=== PATIENT | female | born 1985 | race Caucasian/White ===

== ENCOUNTER 2018-01-20 20:36 | Inpatient (IN) | payer OTHER ==
--- NOTE | 2018-01-20 22:17 | ED ---
Psych HPI - General Chief Complaint: Psychiatric Symptoms Stated Complaint: suicidal Time Seen by Provider: 01/20/18 21:15 Source: patient Mode of arrival: ambulatory - History of Present Illness Initial Comments: This patient is a 32-year-old woman who presents to be evaluated for anxiety, worsening mood, and suicidal ideation. The patient states that her insurance ran out within the past month. This led to her not being able to afford the Effexor that she takes, and she has run out of the medication for 2 weeks. Since that time she has noted that her mood is worsening and she is having issues with anxiety. The patient states that this led to her using methamphetamine to 3 days ago, and she is having significant anxiety related to this, as she had been clean for a little under a year. The patient states she does not have a suicidal plan, but she has had thoughts that maybe she would be better off . MD Complaint: suicidal ideation, other (Anxiety) Onset/Timin -: week(s) Associated Psychiatric Symptoms: depression, suicidal ideation, racing thoughts History of same: Yes Quality: changing over time Improves With: none Context: not taking psychiatric medications Associated Symptoms: denies other symptoms Treatments Prior to Arrival: none - Related Data Home Medications Medication Instructions Recorded Confirmed Venlafaxine HCl [Effexor XR] 225 mg PO DAILY 01/20/18 01/20/18 Zolpidem Tartrate [Ambien] 10 mg PO HS 01/20/18 01/20/18 busPIRone HCL 15 mg PO BID 01/20/18 01/20/18 Allergies Allergy/AdvReac Type Severity Reaction Status Date / Time Penicillins Allergy Anaphylaxis Verified 01/20/18 23:45 sulfamethoxazole Allergy Anaphylaxis Verified 01/20/18 23:45 [From Bactrim] trimethoprim [From Bactrim] Allergy Anaphylaxis Verified 01/20/18 23:45 Review of Systems ROS Statement: Those systems with pertinent positive or pertinent negative responses have been documented in the HPI. ROS Other: All systems not noted in ROS Statement are negative. Constitutional: Denies: fever, chills Respiratory: Denies: cough, dyspnea Cardiovascular: Denies: chest pain, palpitations, edema Gastrointestinal: Denies: abdominal pain, vomiting, diarrhea Genitourinary: Denies: dysuria, hematuria Musculoskeletal: Denies: back pain Skin: Denies: rash Neurological: Denies: headache Psychiatric: Reports: anxiety, depression, suicidal thoughts. Denies: auditory hallucinations, visual hallucinations, homicidal thoughts Past Medical History Past Medical History: No Reported History History of Any Multi-Drug Resistant Organisms: None Reported Past Surgical History: Section Past Psychological History: Anxiety, Depression Smoking Status: Never smoker Past Alcohol Use History: None Reported Past Drug Use History: Cocaine, Heroin General Exam Limitations: no limitations General appearance: alert, in no apparent distress, obese Head exam: Present: atraumatic, normocephalic Eye exam: Present: normal appearance. Absent: scleral icterus, conjunctival injection ENT exam: Present: normal oropharynx Respiratory exam: Present: normal lung sounds bilaterally. Absent: respiratory distress, wheezes, rales, rhonchi, stridor Cardiovascular Exam: Present: regular rate, normal rhythm, normal heart sounds. Absent: systolic murmur, diastolic murmur, rubs, gallop GI/Abdominal exam: Present: soft. Absent: distended, tenderness, guarding, rebound Extremities exam: Present: normal inspection. Absent: pedal edema, calf tenderness Back exam: Present: normal inspection. Absent: CVA tenderness (R), CVA tenderness (L) Neurological exam: Present: alert Psychiatric exam: Present: anxious, suicidal ideation, other (Tearful affect). Absent: agitated, flat affect, manic, homicidal ideation Skin exam: Present: warm, dry, intact, normal color. Absent: rash Course Vital Signs 01/20/18 01/20/18 21:01 23:46 Temperature 98.3 F 97.8 F Pulse Rate 101 H 82 Respiratory 20 18 Rate Blood Pressure 139/80 121/66 O2 Sat by Pulse 99 98 Oximetry Medical Decision Making - Lab Data Result diagrams: 01/21/18 08:11 01/21/18 08:11 Disposition Clinical Impression: Mood disorder Disposition: ADMITTED IP TO THIS [facility] Condition: Fair Is patient prescribed a controlled substance at d/c from ED?: No
[2018-01-20] MEDS ORDERED: MAG HYDROX/AL HYDROX/SIMETH 30 ML CUP PO PRN (23:41)
[2018-01-20] MEDS ORDERED: ZIPRASIDONE 20 MG VIAL IM PRN (23:41)
[2018-01-20] MEDS ORDERED: MAGNESIUM HYDROXIDE 2,400 MG/10 ML CUP PO PRN (23:41)
[2018-01-20] MEDS ORDERED: LORazepam 1 MG TAB PO PRN (23:41)
[2018-01-20] MEDS ORDERED: LORazepam 2 MG/ML INJ IM PRN (23:43)
[2018-01-21 00:27] VITALS: BMI 42.2
--- NOTE | 2018-01-21 01:10 | P.MDCNMH ---
History of Present Illness H&P Date: 01/21/18 Chief Complaint: Depression 32 yo female h/o depression, c/o worsening depressed mood, anhedonia, sleep problems, feeling of worthlessness. Also suicidal ideation. Reports trying to inject methamphetamine, left cubital area. Otherwise denies any fever, chils, SOB, abd pain, chest pain. She reports voluntary admission. Denies hallucinations. Review of Systems All systems: negative Constitutional: Reports fatigue, Denies anorexia, Denies chills, Denies chronic pain, Denies daytime sleepiness Ears, nose, mouth and throat: Denies voice changes Cardiovascular: Denies chest pain, Denies dyspnea on exertion, Denies lightheadedness, Denies rapid heart beat, Denies shortness of breath Respiratory: Denies cough, Denies wheezing Gastrointestinal: Denies abdominal pain Musculoskeletal: Denies gait dysfunction, Denies hot joints, Denies morning stiffness, Denies muscle cramps, Denies myalgias, Denies redness of joints, Denies shooting arm pain Past Medical History Past Medical History: No Reported History History of Any Multi-Drug Resistant Organisms: None Reported Past Surgical History: Section Additional Past Surgical History / Comment(s): 2 C sections Past Anesthesia/Blood Transfusion Reactions: No Reported Reaction Past Psychological History: Anxiety, Depression Smoking Status: Current every day smoker Past Alcohol Use History: None Reported Past Drug Use History: Cocaine, Heroin, Marijuana, Methamphetamine Medications and Allergies Home Medications Medication Instructions Recorded Confirmed Type Venlafaxine HCl [Effexor XR] 225 mg PO DAILY 01/20/18 01/20/18 History Zolpidem Tartrate [Ambien] 10 mg PO HS 01/20/18 01/20/18 History busPIRone HCL 15 mg PO BID 01/20/18 01/20/18 History Allergies Allergy/AdvReac Type Severity Reaction Status Date / Time Penicillins Allergy Anaphylaxis Verified 01/20/18 23:45 sulfamethoxazole Allergy Anaphylaxis Verified 01/20/18 23:45 [From Bactrim] trimethoprim [From Bactrim] Allergy Anaphylaxis Verified 01/20/18 23:45 Physical Exam Vitals: Vital Signs Temp Pulse Pulse Resp BP BP Pulse Ox 01/21/18 00:19 98.0 F 79 17 128/81 100 01/20/18 23:46 97.8 F 82 18 121/66 98 01/20/18 21:01 98.3 F 101 H 20 139/80 99 Intake and Output 01/20/18 01/20/18 01/21/18 14:59 22:59 06:59 Other: Weight 99.79 kg 108.097 kg - Constitutional General appearance: cooperative, no acute distress, obese - EENT Eyes: anicteric sclerae, EOMI - Neck Neck: no lymphadenopathy, normal ROM - Respiratory Respiratory: bilateral: CTA - Cardiovascular Rhythm: regular Heart sounds: normal: S1, S2 - Gastrointestinal General gastrointestinal: normal bowel sounds, no tenderness - Integumentary Integumentary: no rash, no ulcer - Musculoskeletal Musculoskeletal: gait normal - Psychiatric Psychiatric: A&O x's 3 (left cubital fossa, needle mercedes, minimal redness, no pain swelling or streaking; small bruise above ) Cranial Nerve Examination - Cranial Nerves Cranial Nerve II- Optic: Intact Cranial Nerve III- Oculomotor: Intact Cranial Nerve IV- Trochlear: Intact Cranial Nerve V- Trigeminal: Intact Cranial Nerve - Abducens: Intact Cranial Nerve VII- Facial: Intact Cranial Nerve VIII- Auditory: Intact Cranial Nerve IX- Glossopharyngeal: Intact Cranial Nerve X- Vagus: Intact Cranial Nerve XI- Accessory: Intact Cranial Nerve XII- Hypoglossal: Intact Assessment and Plan (1) Mood disorder Narrative/Plan: admitted for worsening depression and suicidal ideation tretment per psychiatry social support check lipid panel, A1c, TSH, test Current Visit: Yes Status: Acute Priority: High Code(s): F39 - UNSPECIFIED MOOD [AFFECTIVE] DISORDER SNOMED Code(s): 75979432 Time with Patient: Less than 30
[2018-01-21 01:18] LABS: Amphetamine Screen,Urine Detected (NotDetected); Barbiturate Screen,Urine Not Detected (NotDetected); Benzodiazepines Screen,Urine Detected (NotDetected); Cocaine Screen,Urine Not Detected (NotDetected); Methadone Screen, Urine Not Detected (NotDetected); Opiate Screen,Urine Not Detected (NotDetected); Oxycodone Screen, Urine Not Detected (NotDetected); Phencyclidine Screen,Urine Not Detected (NotDetected); Tricyclic Antidepressant,Urine Detected (NotDetected); Urn Cannabinoid Scrn Detected (NotDetected)
[2018-01-21 01:32] LABS: Appearance,Urine Clear (Clear); Bilirubin,Urine Negative (Negative); Blood,Urine Moderate (Negative); Color,Urine Yellow; Glucose,Urine (UA) Negative (Negative); Ketones,Urine Negative (Negative); Leukocyte Esterase,Urine Moderate (Negative); Mucus,Urine Occasional /hpf; Nitrite,Urine Negative (Negative); Protein,Urine 1+ (Negative); RBC,Urine 16 /hpf (0-5); Squamous Epithelial Cell,Urine 2 /hpf (0-4); WBC,Urine 2 /hpf (0-5)
[2018-01-21] MEDS: ACETAMINOPHEN TAB 325 MG TAB PO PRN ×2 (08:53→18:09)
[2018-01-21] MEDS: NICOTINE 14MG/24HR PATCH TRANSDERM SCH (08:58)
[2018-01-21 09:22] LABS: ALT 26 U/L (9-52); AST 17 U/L (14-36); Albumin 3.9 g/dL (3.5-5.0); Alkaline Phosphatase 113 U/L (38-126); Anion Gap 12 mmol/L; Blood Urea Nitrogen 16 mg/dL (7-17); Calcium 8.7 mg/dL (8.4-10.2); Carbon Dioxide 20 mmol/L (22-30); Chloride 109 mmol/L (98-107); Cholesterol 233 mg/dL (<200); Glucose 94 mg/dL (74-99); HDL Cholesterol 54 mg/dL (40-60); LDL Cholesterol,Calculated 127 mg/dL (0-99); Sodium 141 mmol/L (137-145); Total Bilirubin 0.2 mg/dL (0.2-1.3); Total Protein 6.5 g/dL (6.3-8.2); Triglycerides 261 mg/dL (<150)
[2018-01-21 09:27] LABS: Basophils # (A) 0.1 k/uL (0-0.2); Basophils % (A) 0 %; Eosinophils # (A) 0.4 k/uL (0-0.7); Eosinophils % (A) 3 %; HCT 36.4 % (34.0-46.0); HGB 11.9 gm/dL (11.4-16.0); Lymphocytes # (A) 3.1 k/uL (1.0-4.8); Lymphocytes % (A) 29 %; MCH 28.2 pg (25.0-35.0); MCHC 32.7 g/dL (31.0-37.0); MCV 86.2 fL (80.0-100.0); Mean Platelet Volume 7.7; Monocytes # (A) 0.6 k/uL (0-1.0); Monocytes % (A) 6 %; Neutrophils # (A) 6.4 k/uL (1.3-7.7); Neutrophils % (A) 60 %; Platelet Count 373 k/uL (150-450); RBC 4.22 m/uL (3.80-5.40); RDW 13.7 % (11.5-15.5); WBC 10.8 k/uL (3.8-10.6)
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
[2018-01-21] MEDS: OXcarbazepine 300 MG TAB PO SCH ×2 (10:09→20:38)
[2018-01-21 17:14] LABS: Hemoglobin A1C 5.5 % (4.0-6.0)
[2018-01-21] MEDS: hydrOXYzine PAMOATE 25 MG CAP PO PRN (18:09)
[2018-01-21] MEDS ORDERED: QUEtiapine 50 MG TAB PO SCH (21:00)
[2018-01-22] MEDS: hydrOXYzine PAMOATE 25 MG CAP PO PRN ×3 (08:10→21:21)
[2018-01-22] MEDS: NICOTINE 14MG/24HR PATCH TRANSDERM SCH (08:10)
[2018-01-22] MEDS: OXcarbazepine 300 MG TAB PO SCH ×2 (08:10→21:21)
--- NOTE | 2018-01-22 08:59 | P.PN ---
Progress Note - Text Progress Note Date: 01/22/18 Patient was seen for routine follow-up examination. She said she did not sleep very well last night, had to take some Vistaril on a when necessary basis for anxiety yesterday etc. She also said she has not been thinking about suicide or hurting herself. Denies any adverse effects from her medications. This is an obese ambulatory white female with adequate hygiene. She has combed her hair and and they are not covering her face today like they did yesterday. She continues not to show psychomotor agitation or retardation. Her speech is spontaneous and goal-directed. Mood is mildly anxious and affect is appropriate. She denies hallucinations, delusional thinking, suicide and homicide thoughts. She is well oriented with adequate memory concentration etc. Plan: Increase Seroquel 200 mg at bedtime, continue Trileptal, groups and other activities. Patient was advised to discuss with her covering psychiatrist tomorrow if the dose of Seroquel needs to be adjusted tomorrow.
[2018-01-22] MEDS: QUEtiapine 100 MG TAB PO SCH (21:21)
[2018-01-22] MEDS: ACETAMINOPHEN TAB 325 MG TAB PO PRN (21:21)
[2018-01-23] MEDS: OXcarbazepine 300 MG TAB PO SCH ×2 (08:39→20:27)
[2018-01-23] MEDS: NICOTINE 14MG/24HR PATCH TRANSDERM SCH (08:39)
[2018-01-23] MEDS: hydrOXYzine PAMOATE 25 MG CAP PO PRN ×3 (08:40→20:28)
[2018-01-23] MEDS: ACETAMINOPHEN TAB 325 MG TAB PO PRN ×2 (08:40→12:15)
--- NOTE | 2018-01-23 14:49 | P.PN ---
Progress Note - Text Progress Note Date: 01/23/18 Interval history: Patient [place] [facility] [place] Dr. Zaidi. She reports that her mood overall is doing better than when she came into the hospital. She wonders again about being placed on an antidepressant because her mood still could be better. She describes that she is no longer having any thoughts of suicide. She does not seem to voice any adverse psychotropic medication side effects. She does describe that her sleep and appetite seemed to be fluctuating. Mental status exam: She is alert and cooperative with the interview. Her speech is fluent, not rapid or pressured. Thought processes organized. Her mood is described as better than when she came into the hospital but still could be better. She denies any thoughts of harm to self or others. She does not display any symptoms of psychosis. Plan: We'll maintain current psychotropic medications. We'll monitor for any medication side effects and continue to monitor her mood. We'll continue to monitor also for any suicidal ideations. Continue to cover this patient for Dr. Zaidi through the weekend.
[2018-01-23] MEDS: QUEtiapine 100 MG TAB PO SCH (20:27)
[2018-01-24] MEDS: OXcarbazepine 300 MG TAB PO SCH ×2 (08:35→20:17)
[2018-01-24] MEDS: hydrOXYzine PAMOATE 25 MG CAP PO PRN ×3 (08:35→20:44)
[2018-01-24] MEDS: NICOTINE 14MG/24HR PATCH TRANSDERM SCH (08:35)
--- NOTE | 2018-01-24 16:53 | P.PN ---
Progress Note - Text Progress Note Date: 01/24/18 Interval history: Patient seen in [facility] today. She reports she slept about 6 hours last night. She relays that she is eating some of her meals. She does not seem to voice any adverse psychotropic medication side effects. She also does describe anxiety. She feels like her mood is a little bit down today. Mental status exam: She is alert and cooperative with the interview. Her speech is fluent, not rapid or pressured. Her thought processes are organized. Her mood is described as "a little down." She denies any thoughts of harm to self or others. No active evidence of psychosis symptoms. Plan: We'll titrate Seroquel 150 mg at bedtime to see if this can help further with aspects of mood as well as severe anxiety and still reported some difficulties with sleep. Continue to monitor her mood and monitor for any medication side effects.
[2018-01-24] MEDS ORDERED: QUEtiapine 50 MG TAB PO SCH (21:00)
[2018-01-24] MEDS: ACETAMINOPHEN TAB 325 MG TAB PO PRN (21:36)
[2018-01-25 06:50] VITALS: PULSE 81
[2018-01-25] MEDS: NICOTINE 14MG/24HR PATCH TRANSDERM SCH (08:09)
[2018-01-25] MEDS: hydrOXYzine PAMOATE 25 MG CAP PO PRN ×3 (08:09→20:16)
[2018-01-25] MEDS: OXcarbazepine 300 MG TAB PO SCH ×2 (08:09→20:16)
--- NOTE | 2018-01-25 10:36 | P.PN ---
Progress Note - Text Progress Note Date: 01/25/18 Patient was seen for routine follow-up examination. She said she feels better today but she still did not sleep well last night. She denies any adverse effects from her medications. Her Seroquel was increased 250 mg at bedtime yesterday by the weekend psychiatrist. She has been attending groups, socializes with peers and interacts with staff etc. This is an obese ambulatory white female with good hygiene. She does not show any psychomotor agitation or retardation. Her speech is spontaneous relevant and goal-directed. Her mood is euthymic and affect is appropriate. She denies suicidal and homicidal thoughts. She denies hallucinations and delusional thinking. She is well oriented with good memory concentration etc. Plan: Increase Seroquel to 200 mg at bedtime, continue Trileptal, groups and other therapies.
[2018-01-25] MEDS: ACETAMINOPHEN TAB 325 MG TAB PO PRN (17:17)
[2018-01-25] MEDS ORDERED: QUEtiapine 200 MG TAB PO SCH (21:00)
[2018-01-26 06:43] VITALS: BP 125/71; RESP 20; TEMP 97.7
[2018-01-26] MEDS: OXcarbazepine 300 MG TAB PO SCH (08:27)
[2018-01-26] MEDS: NICOTINE 14MG/24HR PATCH TRANSDERM SCH (08:27)
[2018-01-26] MEDS: hydrOXYzine PAMOATE 25 MG CAP PO PRN (08:28)
--- NOTE | 2018-01-26 10:05 | P.DS ---
Providers Date of admission: 01/20/18 23:35 Expected date of discharge: 01/26/18 Attending physician: Freddie Zaidi Consults: 01/20/18 23:41 Consult Physician Routine Consulting Provider: Ellen Gonzalez Consult Reason/Comments: For A & P for Medical Follow Up. Do you want consulting provider notified?: Yes Primary care physician: Stated None Hospital Course: Patient had her physical examination, psychiatric evaluation and psychosocial evaluation. After psychiatric evaluation she was counseled about her condition and it was agreed to start her on Trileptal and Seroquel for more stabilization. Her Seroquel was gradually increased to 200 mg at bedtime without any adverse effects and it helped her to sleep well also. She did not have any adverse effects from her medications. Her other home medications were discontinued. She started to improve, interacted with staff, socialized with peers and attended groups. She became free of suicide and homicide thoughts, mood became more stable and she became cheerful. She also agreed to return to work, continue with outpatient treatment etc. In view of this it was agreed to discharge her. Condition on discharge: This is an obese ambulatory white female with adequate hygiene. She is polite friendly and cooperative. Her mood is cheerful and affect is appropriate. She does not show any psychomotor agitation or retardation. She continues to deny suicide and homicide thoughts. She also denies hallucinations and delusional thinking. Her insight and judgment have improved. She is well oriented with good memory concentration general fund of knowledge etc. Diagnosis on discharge: Unspecified bipolar and related disorder F 31.9. Cannabis use disorder severe F 12.20. 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 History of opioid use disorder severe F 12.20. Borderline personality disorder F 60.3. ALLERGY to penicillin and Bactrim. Patient was advised and agreed to take her medications as prescribed, to learn better coping skills through therapy, not to drink alcohol or use drugs, not to drive or operate missionary if she feels sleepy, to inform her doctor if she gets , to call her psychiatrist or therapist and if she cannot get hold of them go to the nearest ER if she develops any thoughts of hurting herself or others. Patient Condition at Discharge: Stable Plan - Discharge Summary New Discharge Prescriptions: New OXcarbazepine [Trileptal] 300 mg PO BID 30 Days #60 tab QUEtiapine [SEROquel] 200 mg PO HS 30 Days #30 tab Discontinued busPIRone HCL 15 mg PO BID Zolpidem Tartrate [Ambien] 10 mg PO HS Venlafaxine HCl [Effexor XR] 225 mg PO DAILY Discharge Medication List OXcarbazepine [Trileptal] 300 mg PO BID 30 Days #60 tab 01/26/18 [Rx] QUEtiapine [SEROquel] 200 mg PO HS 30 Days #30 tab 01/26/18 [Rx] Follow up Appointment(s)/Referral(s): [facility] [Outside] - 1-2 Days (walk in intake today until 5pm Thursday 830 - 3pm 830 - 3pm) None,Stated [Primary Care Provider] - 1-2 days
== END 2018-01-26 11:11 | disposition home or self-care (01) | DRG 885 ==
LOC: EC 20:36 → 3MHU 23:35
PROVIDERS: ADMIT Psychiatry & Neurology Psychiatry; ATTEND Psychiatry & Neurology Psychiatry
DX: F31.9 Bipolar disorder, unspecified (principal); R45.851 Suicidal ideations; Z68.41 Body mass index [BMI] 40.0-44.9, adult; F60.3 Borderline personality disorder; F41.9 Anxiety disorder, unspecified; F17.200 Nicotine dependence, unspecified, uncomplicated; Z62.810 Personal history of physical and sexual abuse in childhood; E66.9 Obesity, unspecified; Z88.1 Allergy status to other antibiotic agents; Z88.0 Allergy status to penicillin; Z81.8 Family history of other mental and behavioral disorders
CPT/HCPCS: 80053; 80061; 80306; 81001; 82075; 83036; 84443; 85025; 99285

== ENCOUNTER 2019-06-16 10:45 | Emergency (ER) | payer OTHER ==
[2019-06-16 11:01] VITALS: RESP 17; TEMP 97.9
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
[2019-06-16 11:53] LABS: Amorphous Sediment,Urine Rare /hpf; Appearance,Urine Cloudy (Clear); Bacteria,Urine Moderate /hpf; Bilirubin,Urine Negative (Negative); Blood,Urine Negative (Negative); Color,Urine Yellow; Glucose,Urine (UA) Negative (Negative); Ketones,Urine Negative (Negative); Leukocyte Esterase,Urine Small (Negative); Mucus,Urine Rare /hpf; Nitrite,Urine Negative (Negative); Protein,Urine Trace (Negative); Specific Gravity,Urine 1.016 (1.001-1.035); Squamous Epithelial Cell,Urine 7 /hpf (0-4); Urobilinogen,Urine <2.0 mg/dL (<2.0)
[2019-06-16 12:01] LABS: Amphetamine Screen,Urine Detected (NotDetected); Barbiturate Screen,Urine Not Detected (NotDetected); Benzodiazepines Screen,Urine Detected (NotDetected); Cocaine Screen,Urine Not Detected (NotDetected); Methadone Screen, Urine Not Detected (NotDetected); Opiate Screen,Urine Not Detected (NotDetected); Oxycodone Screen, Urine Not Detected (NotDetected); Phencyclidine Screen,Urine Not Detected (NotDetected); Tricyclic Antidepressant,Urine Detected (NotDetected); Urn Cannabinoid Scrn Detected (NotDetected)
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
--- NOTE | 2019-06-16 12:13 | XR ---
EXAMINATION TYPE: XR humerus LT DATE OF EXAM: 06/16/2019 CLINICAL HISTORY: pain TECHNIQUE: Frontal and lateral images of the left humerus are obtained. COMPARISON: None. FINDINGS: There is no acute fracture/dislocation evident. The joint spaces appear within normal limi ts. The overlying soft tissue appears unremarkable. IMPRESSION: There is no acute fracture or dislocation. ICD 10 NO FRACTURE, INITIAL EVALUATION
[2019-06-16 15:39] VITALS: BP 150/105; PULSE 81
== END 2019-06-16 15:39 | disposition home or self-care (01) ==
LOC: EC 10:45
DX: F99 Mental disorder, not otherwise specified (principal); R45.851 Suicidal ideations; S40.022A Contusion of left upper arm, initial encounter; F31.9 Bipolar disorder, unspecified; F41.9 Anxiety disorder, unspecified; Z79.899 Other long term (current) drug therapy; Z88.0 Allergy status to penicillin; Z88.2 Allergy status to sulfonamides; X83.8XXA Intentional self-harm by other specified means, initial encounter; Y04.0XXA Assault by unarmed brawl or fight, initial encounter
CPT/HCPCS: 70450; 72125; 80306; 81001; 81025; 82075; 99285

== ENCOUNTER 2021-10-14 22:49 | Emergency (ER) | payer OTHER ==
[2021-10-14 23:26] VITALS: BP 139/88; PULSE 68; RESP 20; TEMP 97
--- NOTE | 2021-10-15 01:01 | ED ---
URI HPI - General Chief Complaint: Upper Respiratory Infection Stated Complaint: cough, muscle pain Time Seen by Provider: 10/15/21 00:50 Source: patient, RN notes reviewed Mode of arrival: ambulatory Limitations: no limitations - History of Present Illness Initial Comments: Patient presents to the emergency stating she's had a few days of cough, runny nose, body aches, intermittent abdominal discomfort and generalized fatigue. Patient requesting COVID-19 test. no changes in vision or hearing, no sore throat or difficulty with speech, no neck pain, no chest pain or shortness of breath, no nausea or vomiting, no changes in urination or bowel movements, no numbness or tingling, no extremity pain, no skin rashes or lesions. - Related Data Home Medications Medication Instructions Recorded Confirmed Naltrexone HCl [Revia] 50 mg PO DAILY 06/16/19 06/16/19 QUEtiapine [SEROquel] 400 mg PO HS 06/16/19 06/16/19 Venlafaxine HCl [Effexor XR] 300 mg PO DAILY 06/16/19 06/16/19 Previous Rx's Medication Instructions Recorded OXcarbazepine [Trileptal] 300 mg PO BID 30 Days #60 tab 01/26/18 Allergies Allergy/AdvReac Type Severity Reaction Status Date / Time Penicillins Allergy Anaphylaxis Verified 10/14/21 23:23 sulfamethoxazole Allergy Anaphylaxis Verified 10/14/21 23:23 [From Bactrim] trimethoprim [From Bactrim] Allergy Anaphylaxis Verified 10/14/21 23:23 Review of Systems ROS Statement: Those systems with pertinent positive or pertinent negative responses have been documented in the HPI. ROS Other: All systems not noted in ROS Statement are negative. Past Medical History Past Medical History: No Reported History History of Any Multi-Drug Resistant Organisms: None Reported Past Surgical History: Section Additional Past Surgical History / Comment(s): 2 C sections Past Anesthesia/Blood Transfusion Reactions: No Reported Reaction Past Psychological History: Anxiety, Depression Smoking Status: Current every day smoker Past Alcohol Use History: Occasional Past Drug Use History: Cocaine, Heroin, Marijuana General Exam Limitations: no limitations General appearance: alert, in no apparent distress Head exam: Present: atraumatic, normocephalic, normal inspection Eye exam: Present: normal appearance, PERRL, EOMI. Absent: scleral icterus, conjunctival injection, periorbital swelling ENT exam: Present: normal exam, mucous membranes moist Neck exam: Present: normal inspection. Absent: tenderness, meningismus, lymphadenopathy Respiratory exam: Present: normal lung sounds bilaterally. Absent: respiratory distress, wheezes, rales, rhonchi, stridor Cardiovascular Exam: Present: regular rate, normal rhythm, normal heart sounds. Absent: systolic murmur, diastolic murmur, rubs, gallop, clicks GI/Abdominal exam: Present: soft, normal bowel sounds. Absent: distended, tenderness, guarding, rebound, rigid Extremities exam: Present: normal inspection, full ROM, normal capillary refill. Absent: tenderness, pedal edema, joint swelling, calf tenderness Back exam: Present: normal inspection Neurological exam: Present: alert, oriented X3, CN II-XII intact Psychiatric exam: Present: normal affect, normal mood Skin exam: Present: warm, dry, intact, normal color. Absent: rash Course Vital Signs 10/14/21 23:23 Temperature 97.0 F L Pulse Rate 68 Respiratory 20 Rate Blood Pressure 139/88 O2 Sat by Pulse 100 Oximetry Medical Decision Making - Medical Decision Making Patient comes up positive for COVID-19. Patient did meet criteria for monoclonal antibody infusion. I discussed this treatment modality with the patient. She is deferring this treatment at this time. Patient no acute distress. Work note given. He shows no evidence of secondary infection. Discussed quarantine measures and treatment plan with the patient. Patient voices understanding. Patient discharged in no acute distress. Nontoxic appearing. - Lab Data Lab Results 10/14/21 Range/Units 23:27 Coronavirus (PCR) Detected A (Not Detectd) Disposition Clinical Impression: COVID-19, Asthmatic bronchitis Disposition: HOME SELF-CARE Condition: Good Instructions (If sedation given, give patient instructions): Coronavirus Disease 2019 (COVID-19) Additional Instructions: SELF QUARANTINE DISCHARGE: As you are at risk for symptoms due to coronavirus, please stay home and stay away from others as much as possible. Please maintain social distance of 6 feet if possible. You should not return to work until at least 3 days (72 hours) have passed since recovery of symptoms. This defined as resolution of fever without the use of fever reducing medicines and improvement in respiratory symptoms (e.g,, cough, shortness of breath) and, At least 7 days have passed since symptoms first appeared. More information about what to do if you are sick can be found on the CDC website at https:/ /www.cdc.gov/coronavirus/2019-ncov/rt-ieh-vew-sick/lalkf-mqpk-jcct.html Expect the symptoms to last for 7-14 days from onset. Use acetaminophen (Tylenol) as needed for discomfort. You can take a maximum of 1 gram every 6 hours for discomfort, with your total dose in 24 hours not exceeding 4 grams. Be sure to maintain hydration. Drink continuous water and/or items high in vitamin C, such as orange juice and/or lemonade. Unless you have high blood pressure, you may consider Sudafed (which is [id number]) for nasal congestion. I would suggest that a short acting Sudafed rather than the 24 hour Sudafed. For a cough you may take Mucinex or Robitussin. Also consider the use of Vicks Vapor Rub or your chest when you sleep. Use a humidifier that is cleaned frequently, in the bedroom at night. For Nausea /Vomiting/Diarrhea associated with your Illness: o Small frequent sips of room temperature liquids. o Diet: [employer] - If you are still experiencing discomfort and/or nausea please slowly advancing your diet using the BRAT Diet = bananas, rice, apples/apple sauce, toast. o With diarrhea avoid any dairy for 48 hours after symptoms resolved. o Continue with activity as tolerated. If your symptoms do get worse and you believe that the upper respiratory infection has developed into something else, such as pneumonia or severe dehydration, please return to the emergency department or follow-up with your primary care. But expect to be symptomatic for the days as indicated above Is patient prescribed a controlled substance at d/c from ED?: No Referrals: Nilson Delatorre MD [Primary Care Provider] - 10/22/21 Time of Disposition: 01:01
== END 2021-10-15 02:08 | disposition home or self-care (01) ==
LOC: EC 22:49
DX: U07.1 COVID-19 (principal); J45.909 Unspecified asthma, uncomplicated; F41.9 Anxiety disorder, unspecified; F32.A Depression, unspecified; F17.200 Nicotine dependence, unspecified, uncomplicated; F12.90 Cannabis use, unspecified, uncomplicated; Z88.0 Allergy status to penicillin; Z88.1 Allergy status to other antibiotic agents; Z88.2 Allergy status to sulfonamides
CPT/HCPCS: 87635; 99284

== ENCOUNTER 2021-12-01 12:01 | Inpatient (IN) | payer MEDICAID, OTHER ==
--- NOTE | 2021-12-01 12:21 | ED ---
General Adult HPI - General Chief complaint: Psychiatric Symptoms Stated complaint: Overdose Time Seen by Provider: 12/01/21 12:06 Source: patient, EMS, RN notes reviewed Mode of arrival: EMS Limitations: altered mental status - History of Present Illness Initial comments: Patient is a pleasant 36-year-old female presenting to the emergency department following an overdose. Patient states around 10:30 this morning she took 30 of her Effexor as well as 8 Suboxone. Patient had an episode yesterday making her depressed and did overdose in attempt to harm herself. Patient denies alcohol or street drug use. No physical complaints. - Related Data Home Medications Medication Instructions Recorded Confirmed Venlafaxine HCl [Effexor XR] 150 mg PO DAILY 06/16/19 12/01/21 Buprenorphine HCl/Naloxone HCl 1 tab SUBLINGUAL TID 12/01/21 12/01/21 [Zubsolv 5.7-1.4 mg Tablet Sl] Cyclobenzaprine [Flexeril] 10 mg PO TID PRN 12/01/21 12/01/21 Ibuprofen [Motrin] 800 mg PO Q8H PRN 12/01/21 12/01/21 Allergies Allergy/AdvReac Type Severity Reaction Status Date / Time Penicillins Allergy Anaphylaxis Verified 12/01/21 14:36 sulfamethoxazole Allergy Anaphylaxis Verified 12/01/21 14:36 [From Bactrim] trimethoprim [From Bactrim] Allergy Anaphylaxis Verified 12/01/21 14:36 Review of Systems ROS Statement: Those systems with pertinent positive or pertinent negative responses have been documented in the HPI. ROS Other: All systems not noted in ROS Statement are negative. Constitutional: Denies: fever Eyes: Denies: eye pain ENT: Denies: ear pain Respiratory: Denies: cough Cardiovascular: Denies: chest pain Endocrine: Denies: fatigue Gastrointestinal: Denies: abdominal pain Genitourinary: Denies: dysuria Musculoskeletal: Denies: back pain Skin: Denies: rash Neurological: Denies: weakness Psychiatric: Reports: as per HPI, depression, suicidal thoughts Past Medical History Past Medical History: No Reported History History of Any Multi-Drug Resistant Organisms: None Reported Past Surgical History: Section Additional Past Surgical History / Comment(s): 2 C sections Past Anesthesia/Blood Transfusion Reactions: No Reported Reaction Past Psychological History: Anxiety, Depression Smoking Status: Current every day smoker Past Alcohol Use History: Occasional Past Drug Use History: Cocaine, Heroin, Marijuana General Exam Limitations: altered mental status General appearance: alert, in no apparent distress Head exam: Present: normocephalic Eye exam: Present: normal appearance Neck exam: Present: normal inspection Respiratory exam: Present: normal lung sounds bilaterally Cardiovascular Exam: Present: regular rate, normal rhythm GI/Abdominal exam: Present: soft. Absent: tenderness Extremities exam: Present: normal inspection Neurological exam: Present: alert Psychiatric exam: Present: depressed Skin exam: Present: normal color Course Vital Signs 12/01/21 12/01/21 12:07 13:34 Temperature 97.4 F L 97.6 F Pulse Rate 106 H 96 Respiratory 16 14 Rate Blood Pressure 165/97 115/81 O2 Sat by Pulse 99 98 Oximetry EKG Findings - EKG Comments: EKG Findings:: Sinus rhythm rate 82. [place] 133. QRS 94. QT 380. QTC 419. Normal axis. Normal QRS. No acute ST change. Medical Decision Making - Medical Decision Making Patient was seen by mental health services plans for admission. - Lab Data Result diagrams: 12/01/21 12:33 12/01/21 12:33 Lab Results 12/01/21 12/01/21 12/01/21 Range/Units 12:33 12:33 13:15 WBC 10.5 (3.8-10.6) k/uL RBC 4.25 (3.80-5.40) m/uL Hgb 13.7 (11.4-16.0) gm/dL Hct 40.7 (34.0-46.0) % MCV 95.7 (80.0-100.0) fL MCH 32.3 (25.0-35.0) pg MCHC 33.7 (31.0-37.0) g/dL RDW 13.1 (11.5-15.5) % Plt Count 353 (150-450) k/uL MPV 7.3 Neutrophils % 69 % Lymphocytes % 20 % Monocytes % 6 % Eosinophils % 3 % Basophils % 1 % Neutrophils # 7.3 (1.3-7.7) k/uL Lymphocytes # 2.1 (1.0-4.8) k/uL Monocytes # 0.7 (0-1.0) k/uL Eosinophils # 0.3 (0-0.7) k/uL Basophils # 0.1 (0-0.2) k/uL Sodium 133 L (137-145) mmol/L Potassium 5.3 H (3.5-5.1) mmol/L Chloride 107 (98-107) mmol/L Carbon Dioxide 20 L (22-30) mmol/L Anion Gap 6 mmol/L BUN 16 (7-17) mg/dL Creatinine 0.51 L (0.52-1.04) mg/dL Est GFR (CKD-EPI)AfAm >90 (>60 ml/min/1.73 sqM) Est GFR (CKD-EPI)NonAf >90 (>60 ml/min/1.73 sqM) Glucose 118 H (74-99) mg/dL Calcium 8.8 (8.4-10.2) mg/dL Total Bilirubin 1.0 (0.2-1.3) mg/dL AST 41 H (14-36) U/L ALT 38 H (4-34) U/L Alkaline Phosphatase 97 (38-126) U/L Total Protein 8.1 (6.3-8.2) g/dL Albumin 4.4 (3.5-5.0) g/dL Urine HCG, Qual Not Detected (Not Detectd) Salicylates <1.0 mg/dL Urine Opiates Screen (NotDetected) Ur Oxycodone Screen (NotDetected) Urine Methadone Screen (NotDetected) Ur Propoxyphene Screen (NotDetected) Acetaminophen <10.0 ug/mL Ur Barbiturates Screen (NotDetected) U Tricyclic Antidepress (NotDetected) Ur Phencyclidine Scrn (NotDetected) Ur Amphetamines Screen (NotDetected) U Methamphetamines Scrn (NotDetected) U Benzodiazepines Scrn (NotDetected) Urine Cocaine Screen (NotDetected) U Marijuana (THC) Screen (NotDetected) Serum Alcohol <10 mg/dL 12/01/21 Range/Units 13:15 WBC (3.8-10.6) k/uL RBC (3.80-5.40) m/uL Hgb (11.4-16.0) gm/dL Hct (34.0-46.0) % MCV (80.0-100.0) fL MCH (25.0-35.0) pg MCHC (31.0-37.0) g/dL RDW (11.5-15.5) % Plt Count (150-450) k/uL MPV Neutrophils % % Lymphocytes % % Monocytes % % Eosinophils % % Basophils % % Neutrophils # (1.3-7.7) k/uL Lymphocytes # (1.0-4.8) k/uL Monocytes # (0-1.0) k/uL Eosinophils # (0-0.7) k/uL Basophils # (0-0.2) k/uL Sodium (137-145) mmol/L Potassium (3.5-5.1) mmol/L Chloride (98-107) mmol/L Carbon Dioxide (22-30) mmol/L Anion Gap mmol/L BUN (7-17) mg/dL Creatinine (0.52-1.04) mg/dL Est GFR (CKD-EPI)AfAm (>60 ml/min/1.73 sqM) Est GFR (CKD-EPI)NonAf (>60 ml/min/1.73 sqM) Glucose (74-99) mg/dL Calcium (8.4-10.2) mg/dL Total Bilirubin (0.2-1.3) mg/dL AST (14-36) U/L ALT (4-34) U/L Alkaline Phosphatase (38-126) U/L Total Protein (6.3-8.2) g/dL Albumin (3.5-5.0) g/dL Urine HCG, Qual (Not Detectd) Salicylates mg/dL Urine Opiates Screen Not Detected (NotDetected) Ur Oxycodone Screen Not Detected (NotDetected) Urine Methadone Screen Not Detected (NotDetected) Ur Propoxyphene Screen Not Detected (NotDetected) Acetaminophen ug/mL Ur Barbiturates Screen Not Detected (NotDetected) U Tricyclic Antidepress Detected H (NotDetected) Ur Phencyclidine Scrn Not Detected (NotDetected) Ur Amphetamines Screen Not Detected (NotDetected) U Methamphetamines Scrn Not Detected (NotDetected) U Benzodiazepines Scrn Not Detected (NotDetected) Urine Cocaine Screen Not Detected (NotDetected) U Marijuana (THC) Screen Detected H (NotDetected) Serum Alcohol mg/dL Disposition Clinical Impression: Suicidal ideation, Depression, Overdose Disposition: TRANSFER TO PSYCH HOSP/UNIT Is patient prescribed a controlled substance at d/c from ED?: No Referrals: Nilson Delatorre MD [Primary Care Provider] - 1-2 days Decision Time: 16:58
[2021-12-01 12:49] LABS: Basophils # (A) 0.1 k/uL (0-0.2); Basophils % (A) 1 %; Eosinophils # (A) 0.3 k/uL (0-0.7); Eosinophils % (A) 3 %; HCT 40.7 % (34.0-46.0); HGB 13.7 gm/dL (11.4-16.0); Lymphocytes # (A) 2.1 k/uL (1.0-4.8); Lymphocytes % (A) 20 %; MCH 32.3 pg (25.0-35.0); MCHC 33.7 g/dL (31.0-37.0); MCV 95.7 fL (80.0-100.0); Mean Platelet Volume 7.3; Monocytes # (A) 0.7 k/uL (0-1.0); Monocytes % (A) 6 %; Neutrophils # (A) 7.3 k/uL (1.3-7.7); Neutrophils % (A) 69 %; Platelet Count 353 k/uL (150-450); RBC 4.25 m/uL (3.80-5.40); RDW 13.1 % (11.5-15.5); WBC 10.5 k/uL (3.8-10.6)
[2021-12-01 13:01] LABS: ALT 38 U/L (4-34); Acetaminophen <10.0 ug/mL; African American GFR (CKD) >90 (>60 ml/min/1.73 sqM); Albumin 4.4 g/dL (3.5-5.0); Alcohol <10 mg/dL; Anion Gap 6 mmol/L; Blood Urea Nitrogen 16 mg/dL (7-17); Calcium 8.8 mg/dL (8.4-10.2); Carbon Dioxide 20 mmol/L (22-30); Chloride 107 mmol/L (98-107); Glucose 118 mg/dL (74-99); Non-African American GFR(CKD) >90 (>60 ml/min/1.73 sqM); Salicylate <1.0 mg/dL; Sodium 133 mmol/L (137-145); Total Protein 8.1 g/dL (6.3-8.2)
[2021-12-01 13:07] LABS: AST 41 U/L (14-36); Potassium 5.3 mmol/L (3.5-5.1)
[2021-12-01 13:08] LABS: Alkaline Phosphatase 97 U/L (38-126)
[2021-12-01] MEDS ORDERED: SODIUM CHLORIDE 0.9% 1,000 ML IV STA (13:18)
[2021-12-01 14:03] LABS: Amphetamine Screen,Urine Not Detected (NotDetected); Barbiturate Screen,Urine Not Detected (NotDetected); Benzodiazepines Screen,Urine Not Detected (NotDetected); Cocaine Screen,Urine Not Detected (NotDetected); Methadone Screen, Urine Not Detected (NotDetected); Opiate Screen,Urine Not Detected (NotDetected); Oxycodone Screen, Urine Not Detected (NotDetected); Phencyclidine Screen,Urine Not Detected (NotDetected); Tricyclic Antidepressant,Urine Detected (NotDetected); Urn Cannabinoid Scrn Detected (NotDetected)
[2021-12-01] MEDS ORDERED: MAG HYDROX/AL HYDROX/SIMETH 30 ML CUP PO PRN (18:25)
[2021-12-01] MEDS ORDERED: HALOPERIDOL LACTATE 5 MG/ML 1 ML VIAL IM PRN (18:25)
[2021-12-01] MEDS ORDERED: MAGNESIUM HYDROXIDE 2,400 MG/10 ML CUP PO PRN (18:25)
[2021-12-01] MEDS ORDERED: LORazepam 2 MG/ML INJ IM PRN (18:30)
[2021-12-01] MEDS ORDERED: NICOTINE 14MG/24HR PATCH TRANSDERM ONE (19:09)
[2021-12-01] MEDS: LORazepam 1 MG TAB PO PRN (19:10)
[2021-12-01] MEDS: ACETAMINOPHEN TAB 325 MG TAB PO PRN (20:49)
--- NOTE | 2021-12-02 01:45 | P.CONS ---
History of Present Illness - Reason for Consult Consult date: 12/02/21 - History of Present Illness Patient is a 36-year-old female with a PMH of polysubstance abuse who presented to the emergency room with depression and a suicide attempt. The patient was admitted to the mental health unit where she was seen and evaluated. The patient reports that earlier this morning, at around 10:30 AM, she attempted suicide by ingesting 30 tablets of Effexor and 8 Suboxones. The patient reports subsequently inducing vomiting and throwing up some of the pills. She reports feeling somewhat on edge at the time of interview. Denied any additional physical complaints. EKG in the emergency room revealed sinus rhythm at [address]/T-wave changes noted as reviewed by me. Laboratory evaluation was remarkable for potassium of 5.3 (hemolyzed), AST 41 and ALT 38. Review of systems: Pertinent positives and negatives as discussed in HPI, a complete review of systems was performed and all other systems are negative. Physical examination: General: non toxic, no distress, appears at stated age, obese Derm: no unusual rashes/lesions no unusual ecchymoses, warm, dry Head: atraumatic, normocephalic, symmetric Eyes: EOMI, no lid lag, anicteric sclera, pupils equal round reactive to light ENT: Nose and ears atraumatic, no thrush, no pharyngeal erythema Neck: No thyromegaly, no cervical lymphadenopathy, trachea midline, supple Mouth: no lip lesion, mucus membranes moist Cardiovascular: S1S2 reg, no murmur, positive posterior tibial pulse bilateral, no edema, capillary refill less than 2 seconds Lungs: CTA bilateral, no rhonchi, no rales , no accessory muscle use Abdominal: soft, nontender to palpation, no guarding, no appreciable organomegaly, normal bowel sounds Ext: no gross muscle atrophy, muscle strength 5 out of 5 in all 4 extremities grossly, no contractures, Neuro: CN II-XI grossly intact, light touch intact all 4 extremities, finger to nose within normal limits, Psych: Alert, oriented, appropriate affect Assessment/plan Abnormal LFTs -Likely due to ingestion of substances -Monitor for now Depression and suicidal ideation -As per psychiatry Thank you for allowing us to participate in the care of this patient. We will follow peripherally. Do not hesitate to contact us with questions. Someone can be reached from the [facility] hospitalist group at all hours of the day at [phone]. Past Medical History Past Medical History: No Reported History History of Any Multi-Drug Resistant Organisms: None Reported Past Surgical History: Section Additional Past Surgical History / Comment(s): 2 C sections Past Anesthesia/Blood Transfusion Reactions: No Reported Reaction Past Psychological History: Anxiety, Depression Smoking Status: Current every day smoker Past Alcohol Use History: Occasional Past Drug Use History: Cocaine, Heroin, Marijuana Medications and Allergies Home Medications Medication Instructions Recorded Confirmed Type Venlafaxine HCl [Effexor XR] 150 mg PO DAILY 06/16/19 12/01/21 History Buprenorphine HCl/Naloxone HCl 1 tab SUBLINGUAL TID 12/01/21 12/01/21 History [Zubsolv 5.7-1.4 mg Tablet Sl] Cyclobenzaprine [Flexeril] 10 mg PO TID PRN 12/01/21 12/01/21 History Ibuprofen [Motrin] 800 mg PO Q8H PRN 12/01/21 12/01/21 History Allergies Allergy/AdvReac Type Severity Reaction Status Date / Time Penicillins Allergy Anaphylaxis Verified 12/01/21 14:36 sulfamethoxazole Allergy Anaphylaxis Verified 12/01/21 14:36 [From Bactrim] trimethoprim [From Bactrim] Allergy Anaphylaxis Verified 12/01/21 14:36 Physical Exam Vitals: Vital Signs Temp Pulse Pulse Resp BP BP Pulse Ox 12/01/21 20:47 98.3 F 118 H 16 135/81 12/01/21 19:14 98.1 F 110 H 15 139/92 98 12/01/21 17:35 98.8 F 105 H 10 L 116/96 99 12/01/21 13:34 97.6 F 96 14 115/81 98 12/01/21 12:07 97.4 F L 106 H 16 165/97 99 Intake and Output 12/01/21 12/01/21 12/02/21 14:59 22:59 06:59 Other: Weight 99.79 kg Results CBC & Chem 7: 12/01/21 12:33 12/01/21 12:33 Labs: Abnormal Lab Results - Last 24 Hours (Table) 12/01/21 12/01/21 Range/Units 12:33 13:15 Sodium 133 L (137-145) mmol/L Potassium 5.3 H (3.5-5.1) mmol/L Carbon Dioxide 20 L (22-30) mmol/L Creatinine 0.51 L (0.52-1.04) mg/dL Glucose 118 H (74-99) mg/dL AST 41 H (14-36) U/L ALT 38 H (4-34) U/L U Tricyclic Antidepress Detected H (NotDetected) U Marijuana (THC) Screen Detected H (NotDetected)
[2021-12-02] MEDS: ACETAMINOPHEN TAB 325 MG TAB PO PRN (04:43)
[2021-12-02] MEDS: LORazepam 1 MG TAB PO PRN ×3 (04:43→20:11)
[2021-12-02] MEDS: NICOTINE 14MG/24HR PATCH TRANSDERM SCH (09:08)
[2021-12-02] MEDS: haloperidoL 5 MG TAB PO PRN (09:10)
[2021-12-02 11:25] LABS: HDL Cholesterol 49.3 mg/dL (40.00-60.00)
[2021-12-02 11:45] LABS: Chol/HDL Ratio 7.34 Ratio
[2021-12-02] MEDS ORDERED: DICYCLOMINE 20 MG TAB PO PRN (14:45)
[2021-12-02] MEDS ORDERED: LOPERAMIDE 2 MG CAP PO PRN (14:45)
[2021-12-02] MEDS: CYCLOBENZAPRINE 10 MG TAB PO PRN (14:53)
[2021-12-02] MEDS: cloNIDine HCL 0.1 MG TAB PO PRN (14:54)
[2021-12-02] MEDS: hydrOXYzine pamoate 25 MG CAP PO PRN ×2 (14:54→20:12)
[2021-12-02] MEDS: IBUPROFEN 800 MG TAB PO PRN (14:54)
--- NOTE | 2021-12-02 14:58 | P.HP ---
Psychiatric H&P - . H&P Date: 12/02/21 History & Physical: Allergies Allergy/AdvReac Type Severity Reaction Status Date / Time Penicillins Allergy Anaphylaxis Verified 12/01/21 14:36 sulfamethoxazole Allergy Anaphylaxis Verified 12/01/21 14:36 From Bactrim trimethoprim From Bactrim Allergy Anaphylaxis Verified 12/01/21 14:36 Vital Signs Temp 98.0 F 12/02/21 04:58 Pulse 111 H 12/02/21 04:58 Resp 14 12/02/21 04:58 BP 119/77 12/02/21 04:58 Pulse Ox 98 12/01/21 19:14 Intake & Output 12/01/21 12/02/21 12/02/21 18:59 06:59 18:59 Weight 99.79 kg Laboratory Last Values WBC 10.5 k/uL (3.8-10.6) 12/01/21 12:33 RBC 4.25 m/uL (3.80-5.40) 12/01/21 12:33 Hgb 13.7 gm/dL (11.4-16.0) 12/01/21 12:33 Hct 40.7 % (34.0-46.0) 12/01/21 12:33 MCV 95.7 fL (80.0-100.0) 12/01/21 12:33 MCH 32.3 pg (25.0-35.0) 12/01/21 12:33 MCHC 33.7 g/dL (31.0-37.0) 12/01/21 12:33 RDW 13.1 % (11.5-15.5) 12/01/21 12:33 Plt Count 353 k/uL (150-450) 12/01/21 12:33 MPV 7.3 12/01/21 12:33 Neutrophils % 69 % 12/01/21 12:33 Lymphocytes % 20 % 12/01/21 12:33 Monocytes % 6 % 12/01/21 12:33 Eosinophils % 3 % 12/01/21 12:33 Basophils % 1 % 12/01/21 12:33 Neutrophils # 7.3 k/uL (1.3-7.7) 12/01/21 12:33 Lymphocytes # 2.1 k/uL (1.0-4.8) 12/01/21 12:33 Monocytes # 0.7 k/uL (0-1.0) 12/01/21 12:33 Eosinophils # 0.3 k/uL (0-0.7) 12/01/21 12:33 Basophils # 0.1 k/uL (0-0.2) 12/01/21 12:33 Sodium 133 mmol/L (137-145) L 12/01/21 12:33 Potassium 5.3 mmol/L (3.5-5.1) H 12/01/21 12:33 Chloride 107 mmol/L (98-107) 12/01/21 12:33 Carbon Dioxide 20 mmol/L (22-30) L 12/01/21 12:33 Anion Gap 6 mmol/L 12/01/21 12:33 BUN 16 mg/dL (7-17) 12/01/21 12:33 Creatinine 0.51 mg/dL (0.52-1.04) L 12/01/21 12:33 Est GFR (CKD-EPI)AfAm >90 (>60 ml/min/1.73 sqM) 12/01/21 12:33 Est GFR (CKD-EPI)NonAf >90 (>60 ml/min/1.73 sqM) 12/01/21 12:33 Glucose 118 mg/dL (74-99) H 12/01/21 12:[address] Glu mg/dL 111 12/01/21 12:33 Hemoglobin A1c 5.5 % (0.0-6.0) 12/01/21 12:33 Calcium 8.8 mg/dL (8.4-10.2) 12/01/21 12:33 Total Bilirubin 1.0 mg/dL (0.2-1.3) 12/01/21 12:33 AST 41 U/L (14-36) H 12/01/21 12:33 ALT 38 U/L (4-34) H 12/01/21 12:33 Alkaline Phosphatase 97 U/L (38-126) 12/01/21 12:33 Total Protein 8.1 g/dL (6.3-8.2) 12/01/21 12:33 Albumin 4.4 g/dL (3.5-5.0) 12/01/21 12:33 Triglycerides 641.00 mg/dL (0.00-149.00) H 12/01/21 12:33 Cholesterol 362.00 mg/dL (0.00-200.00) H 12/01/21 12:33 LDL Cholesterol Direct 180.00 mg/dL (0.00-129.00) H 12/01/21 12:33 LDL Cholesterol, Calc mg/dL (0.0-131.0) 12/01/21 12:33 VLDL Cholesterol, Calc mg/dL (5.00-40.00) 12/01/21 12:33 HDL Cholesterol 49.30 mg/dL (40.00-60.00) 12/01/21 12:33 Cholesterol/HDL Ratio 7.34 Ratio 12/01/21 12:33 Urine HCG, Qual Not Detected (Not Detectd) 12/01/21 13:15 Salicylates <1.0 mg/dL 12/01/21 12:33 Urine Opiates Screen Not Detected (NotDetected) 12/01/21 13:15 Ur Oxycodone Screen Not Detected (NotDetected) 12/01/21 13:15 Urine Methadone Screen Not Detected (NotDetected) 12/01/21 13:15 Ur Propoxyphene Screen Not Detected (NotDetected) 12/01/21 13:15 Acetaminophen <10.0 ug/mL 12/01/21 12:33 Ur Barbiturates Screen Not Detected (NotDetected) 12/01/21 13:15 U Tricyclic Antidepress Detected (NotDetected) H 12/01/21 13:15 Ur Phencyclidine Scrn Not Detected (NotDetected) 12/01/21 13:15 Ur Amphetamines Screen Not Detected (NotDetected) 12/01/21 13:15 U Methamphetamines Scrn Not Detected (NotDetected) 12/01/21 13:15 U Benzodiazepines Scrn Not Detected (NotDetected) 12/01/21 13:15 Urine Cocaine Screen Not Detected (NotDetected) 12/01/21 13:15 U Marijuana (THC) Screen Detected (NotDetected) H 12/01/21 13:15 Serum Alcohol <10 mg/dL 12/01/21 12:33 Coronavirus (PCR) Not Detected (Not Detectd) 12/01/21 16:46 12/02/21 14:50 IDENTIFYING DATA: Patient is a 36-year-old female who currently lives with her boyfriend in a house has 2 kids that are currently adopted. She is currently between jobs. HPI: Patient presented to the hospital and according to ER report patient had overdosed on about 30 tablets of Effexor and was feeling depressed at home at around 10:30 in the morning. Patient was admitted voluntarily to the mental health unit. She was seen by caption writer and agreeable to speak in the office. She appeared to be disheveled in appearance and was tearful and appeared to be very anxious. She states that she is going through opiate withdrawals. She claims that she overdosed on 30 tablets of 150 mg of Effexor. She claims that she also home overdosed with 8 tablets of subsolv at home. She states that she used to use heroin however has been opiate free since 02/18/2021. She claims that she has been feeling depressed and anxious lately. She appeared to be visibly upset and was tearful. She spoke about it being a suicide attempt from the overdose because her boyfriend broke up with her. She claims that her had in 2018. She claims that she is feeling better well being homeless and kicked out of the house. She also states that her children were adopted out. She states that she believes that her boyfriend was talking to other girls online and she does not trust him. She claims that also she quit her job one week ago and was supposed to start a job at [employer] within the next couple days. She claims that her boyfriend has high expectations of her and they've been getting into a lot of arguments. She states that she doesn't want to work as hard however he is making her work so he does not have to. She states that her sleep has been poor. She claims that she has a diagnosis of bipolar disorder was previously on Seroquel as well. She claims that after she overdosed she went to sleep and woke up and then told her roommate who called 911 to bring him into the hospital. Patient denies any current suicidal or homicidal ideations intent or plan. At this time patient denies any auditory or visual hallucinations. Patient denies any flight of ideas racing thoughts and increased in goal directed behavior. Things that she does have a history of manic episodes. Patient admits to using heroin in the past however is now on opiate replacement therapy. She claims that she smokes cigarettes. Occasional alcohol. PAST PSYCHIATRIC HISTORY: Patient states that she has a history of bipolar disorder. She was previously on Effexor and Seroquel in the past. She claims that she was once psychiatrically admitted to the mental health unit in 2018 after her and was feeling depressed. She states that she previously overdosed on pills at that time. She claims that she follows up with her PCP for the opiate replacement treatment and also her psychiatric medication . She also states that she has a therapist in [place]. PMH:denies ALLERGIES: as per EMR CHEMICAL DEPENDENCY HISTORY: as per HPI FAMILY PSYCHIATRIC/SUBSTANCE USE HISTORY: She states that many people in her family have bipolar disorder. SOCIAL HISTORY: Patient was born and raised in [facility] and states that she was raised in [place] as well. She claims that she did some college. She claims that she used to work at [employer] however now is about to start a job at [employer]. She denies any legal history. She claims that she has 2 kids that are adopted out. She currently lives with her boyfriend in the house. MENTAL STATUS EXAM: General Appearance: Patient appears to be overweight, multiple tattoos, wearing glasses, tearful, stated age is alert, directable, and attempts to cooperate. Patient appears to have poor hygiene and grooming. Behavior: Patient is seated without any agitated behavior. Tearful and upset. Speech: Patient's speech is fluent and nonpressured. Mood/Affect: Patient reports their mood is depressed and anxious, affect is congruent and in tearful Suicidality/Homicidality: Patient denies having any homicidal ideation intent or plan. Denies any suicidal ideations intent or plan Perceptions: Patient denies any visual hallucinations and denies any auditory hallucinations Though content/process: Focused on her stressors, depressive content. Catastrophizing. Memory and concentration: AOX3, grossly intact for the purposes of this session. Can spell "WORLD" backwards Judgment and insight: poor STRENGTHS/WEAKNESSES: strength is that patient is resilient. Weakness is that patient has poor judgment and is impulsive INTELLECT: average IMPRESSIONS: Bipolar disorder, current episode depressed Suicide attempt by overdose on medications History of opiate dependence, currently in withdrawal Nicotine dependence PLAN: -Patient is admitted under voluntary status to MHU for stabilization of psychiatric symptoms and safety. Patient has signed adult voluntary form and medication consent and is placed in patient's chart. -Medications : Will start patient on Seroquel 75 mg daily at bedtime for mood stabilization/sleep, will resume Effexor 150 mg daily for mood/anxiety. Added Vistaril when necessary for anxiety. -Clonidine, Bentyl and loperamide when necessary for opiate withdrawal. -Ativan and Haldol PRN for agitation/aggression -Patient was counselled on substance abuse and desired to cut back on use] -Patient was informed of the risks, benefits and side effects of the medication and patient verbally consented to taking the medications. Patient signed med consent form and was placed in chart. -Internal Medicine consult to perform medical evaluation and physical. -NRT - [nicotine patch] -SW on board for discharge planning. Encourage patient to participate in groups to work on coping skills. []
[2021-12-02 20:28] LABS: ALT 41 U/L (4-34); AST 30 U/L (14-36); African American GFR (CKD) >90 (>60 ml/min/1.73 sqM); Albumin 4.2 g/dL (3.5-5.0); Alkaline Phosphatase 97 U/L (38-126); Anion Gap 8 mmol/L; Blood Urea Nitrogen 18 mg/dL (7-17); Calcium 8.9 mg/dL (8.4-10.2); Carbon Dioxide 23 mmol/L (22-30); Chloride 103 mmol/L (98-107); Glucose 96 mg/dL (74-99); Non-African American GFR(CKD) >90 (>60 ml/min/1.73 sqM); Potassium 4.5 mmol/L (3.5-5.1); Sodium 134 mmol/L (137-145); Total Bilirubin 0.5 mg/dL (0.2-1.3); Total Protein 7.2 g/dL (6.3-8.2)
[2021-12-02] MEDS ORDERED: QUEtiapine 25 MG TAB PO SCH (21:00)
[2021-12-03] MEDS: NICOTINE 14MG/24HR PATCH TRANSDERM SCH (07:48)
[2021-12-03] MEDS: LORazepam 1 MG TAB PO PRN ×3 (07:48→20:46)
[2021-12-03] MEDS: cloNIDine HCL 0.1 MG TAB PO PRN ×2 (07:48→18:46)
[2021-12-03] MEDS: ACETAMINOPHEN TAB 325 MG TAB PO PRN ×2 (07:49→13:21)
[2021-12-03] MEDS ORDERED: VENLAFAXINE HCL ER 150 MG CAP PO SCH (09:00)
--- NOTE | 2021-12-03 12:12 | P.PN ---
Progress Note - Text Progress Note Date: 12/03/21 Interval History: Patient was seen wandering the hallways and was directable and agreeable to sp reid with copywriter in the office. Patient appears to be fairly anxious today however claims that her mood has improved mildly since yesterday. She appears to be less tearful and more cooperative during the interview and appropriate. She had poor eye contact today. She states that she still did not shower on the unit however will attempt to do so today. She was complaining about her medications and states that she did not sleep at all last night. She is agreeable to have her Seroquel increased for tonight. She states that she is not feeling suicidal today and regrets what she did. She states that she only went to some groups however has mainly been isolating in her room. At this time patient denies any current suicidal or homical ideations, intent or plan. Patient denies any auditory, visual hallucinations and denies any paranoia or delusions. Patient denies any side effects from the medications and has been compliant with meds. Mental Status Exam: General Appearance: Patient appears to be overweight, multiple tattoos, wearing glasses, stated age is alert, directable, and attempts to cooperate. Patient appears to have improving hygiene and grooming. Behavior: Patient is seated without any agitated behavior. Not tearful today. Poor eye contact. Speech: Patient's speech is fluent and nonpressured. Mood/Affect: Patient reports their mood is "a bit better", affect is congruent Suicidality/Homicidality: Patient denies having any homicidal ideation intent or plan. Denies any suicidal ideations intent or plan Perceptions: Patient denies any visual hallucinations and denies any auditory hallucinations Though content/process: Focused on her stressors, depressive content. Improving mildly. Memory and concentration: AOX3, grossly intact for the purposes of this session Judgment and insight: poor, proving mildly IMPRESSIONS: Bipolar disorder, current episode depressed Suicide attempt by overdose on medications History of opiate dependence, currently in withdrawal Nicotine dependence Plan: -Patient continues to meet criteria for inpatient psychiatric admission for symptom stabilization and safety. Patient has signed adult voluntary form and medication consent and was placed in patient's chart. -Medications: Increase Seroquel to 150 mg daily at bedtime for mood stabilization/sleep, Effexor XR increased to 225 mg daily for mood/anxiety, start scheduled Vistaril 25 mg twice a day for anxiety. -When necessary Ativan and Haldol for agitation/aggression. -Clonidine, Bentyl and loperamide when necessary for opiate withdrawal. -NRT - nicotine patch -SW on board for discharge planning. Encouraged the patient to participate in milieu. Likely discharge in 1-2 days.
[2021-12-03] MEDS: CYCLOBENZAPRINE 10 MG TAB PO PRN (13:22)
[2021-12-03] MEDS: hydrOXYzine pamoate 25 MG CAP PO SCH ×2 (13:22→20:46)
[2021-12-03] MEDS: haloperidoL 5 MG TAB PO PRN (18:46)
[2021-12-03] MEDS: IBUPROFEN 800 MG TAB PO PRN (20:46)
[2021-12-03] MEDS ORDERED: QUEtiapine 50 MG TAB PO SCH (21:00)
--- NOTE | 2021-12-03 22:11 | P.PN ---
Progress Note - Text Progress Note Date: 12/03/21 Presenting complaint: Depression and suicide attempt HOSPITAL course Patient is a 36-year-old female with a PMH of polysubstance abuse who presented to the emergency room with depression and a suicide attempt. The patient was admitted to the mental health unit where she was seen and evaluated. The patient reports that earlier this morning, at around 10:30 AM, she attempted suicide by ingesting 30 tablets of Effexor and 8 Suboxones. The patient reports subsequently inducing vomiting and throwing up some of the pills. She reports feeling somewhat on edge at the time of interview. Denied any additional physical complaints. EKG in the emergency room revealed sinus rhythm at [address]/T-wave changes noted as reviewed by me. Laboratory evaluation was remarkable for potassium of 5.3 (hemolyzed), AST 41 and ALT 38. December 03: Patient is feeling better. Ambulating. Breathing stable. Did eat well. Active Medications Acetaminophen (Acetaminophen Tab 325 Mg Tab) 650 mg PO Q4HR PRN PRN Reason: Pain/Discomfort Last Admin: 12/03/21 13:21 Dose: 650 mg Documented by: Al Hydroxide/Mg Hydroxide (Mag Hydrox/Al Hydrox/Simeth 30 Ml Cup) 30 ml PO Q4HR PRN PRN Reason: GI Upset Clonidine (Clonidine Hcl 0.1 Mg Tab) 0.1 mg PO Q8H PRN PRN Reason: opioid w/d sx Last Admin: 12/03/21 18:46 Dose: 0.1 mg Documented by: Cyclobenzaprine HCl (Cyclobenzaprine 10 Mg Tab) 10 mg PO TID PRN PRN Reason: Muscle Spasm Last Admin: 12/03/21 13:22 Dose: 10 mg Documented by: Dicyclomine HCl (Dicyclomine 20 Mg Tab) 20 mg PO QID PRN PRN Reason: Dyspepsia Haloperidol (Haloperidol 5 Mg Tab) 5 mg PO TID PRN PRN Reason: Agitation or Acute Anxiety Last Admin: 12/03/21 18:46 Dose: 5 mg Documented by: Haloperidol Lactate (Haloperidol Lactate 5 Mg/Ml 1 Ml Vial) 5 mg IM Q6HR PRN PRN Reason: Agitation or Acute Psychosis Hydroxyzine Pamoate (Hydroxyzine Pamoate 25 Mg Cap) 25 mg PO BID CASEY Last Admin: 12/03/21 20:46 Dose: 25 mg Documented by: Ibuprofen (Ibuprofen 800 Mg Tab) 800 mg PO Q8H PRN PRN Reason: Pain Last Admin: 12/03/21 20:46 Dose: 800 mg Documented by: Loperamide HCl (Loperamide 2 Mg Cap) 2 mg PO QID PRN PRN Reason: Diarrhea Lorazepam (Lorazepam 1 Mg Tab) 1 mg PO TID PRN PRN Reason: Anxiety, Agitation Last Admin: 12/03/21 20:46 Dose: 1 mg Documented by: Lorazepam (Lorazepam 2 Mg/Ml Inj) 1 mg IM Q6HR PRN PRN Reason: Agitation or Acute Anxiety Magnesium Hydroxide (Magnesium Hydroxide 2,400 Mg/10 Ml Cup) 2,400 mg PO DAILY PRN PRN Reason: Constipation Nicotine (Nicotine 14mg/24hr patch TRANSDERM DAILY CASEY Last Admin: 12/03/21 07:48 Dose: 1 patch Documented by: Quetiapine Fumarate (Quetiapine 50 Mg Tab) 150 mg PO HS CASEY Last Admin: 12/03/21 20:46 Dose: 150 mg Documented by: Venlafaxine HCl (Venlafaxine Hcl Er 75 Mg Cap) 225 mg PO DAILY CASEY On examination: VITAL SIGNS: [97.6, 89, 15, 103/55, 98% room air] GENERAL APPEARANCE: Comfortable. HEENT: Normal external appearance of nose and ear. Oral cavity normal EYES: Pupils equal. Conjunctiva normal. NECK: JVD not raised. . RESPIRATORY: Respiratory effort normal. Lungs clear to auscultation. CARDIOVASCULAR: First and second sounds normal. No edema. . PSYCHIATRY: Alert and oriented x3. Mood and affect slightly anxious INVESTIGATIONS, reviewed in the clinical context: Sodium 134 potassium 4.5 creatinine 0.68 LDL 180 Serum alcohol less than 10 Urine drug screen positive for tricyclic antidepressants, marijuana COVID 19: PCR: Not detected Assessment and plan: -Chronic nicotine dependence cigarette smoker Nicotine patch 21 -Recreational marijuana use Advised against the same -Bipolar disorder current episode depressed -Suicide attempt by overdose of medications -Hyperlipidemia Consult. Consult dietitian. Diet changes. Follow-up with PCP Care was discussed with the patient. Change nicotine pressure 21. Consult. Cu rrent medications to continue. Consult dietitian for low fat diet. Patient to follow with Dr. Nilson Delatorre
[2021-12-03] MEDS: FAMOTIDINE 20 MG TAB PO SCH (22:57)
[2021-12-03] MEDS: NICOTINE 21MG/24HR PATCH TRANSDERM SCH (22:57)
[2021-12-04] MEDS: hydrOXYzine pamoate 25 MG CAP PO SCH ×3 (08:19→20:17)
[2021-12-04] MEDS: VENLAFAXINE HCL ER 75 MG CAP PO SCH (08:20)
[2021-12-04] MEDS: NICOTINE 21MG/24HR PATCH TRANSDERM SCH (08:20)
[2021-12-04] MEDS: FAMOTIDINE 20 MG TAB PO SCH ×2 (08:20→20:16)
[2021-12-04] MEDS: ACETAMINOPHEN TAB 325 MG TAB PO PRN ×2 (08:23→17:12)
[2021-12-04] MEDS: LORazepam 1 MG TAB PO PRN ×3 (08:24→22:50)
[2021-12-04] MEDS: cloNIDine HCL 0.1 MG TAB PO PRN (08:24)
[2021-12-04] MEDS ORDERED: SALINE NASAL GEL 14.1 GM TUBE NASAL PRN (10:13)
--- NOTE | 2021-12-04 10:32 | P.PN ---
Progress Note - Text Progress Note Date: 12/04/21 Interval History: Patient was seen wandering the hallways and was directable and agreeable to brenna mathews with commercial loan underwriter in the office. Patient claims that she is still going through some withdrawal symptoms from the opiates. She states that the clonidine does help mildly however was reminded that she can take up to 0.1 mg 3 times a day and patient claims that she will try that. She states that she does get chills at times and feels anxious. She was agreeable to have her Seroquel increased as she got a bit more sleep however not enough. She did state also that she has a stuffy nose in the morning and requested to have nasal gel itches helped her in the past. She states that she has gone to some groups. She was less irritable today and not tearful. She claims that her mood has been gradually improving. She claims that she regrets overdosing and states that "I don't want to and I don't know why I did that". Claims to have improving appetite. At this time patient denies any current suicidal or homical ideations, intent or plan. Patient denies any auditory, visual hallucinations and denies any paranoia or delusions. Patient denies any side effects from the medications and has been compliant with meds. Mental Status Exam: General Appearance: Patient appears to be overweight, multiple tattoos, wearing glasses, stated age is alert, directable, and attempts to cooperate. Patient appears to have improving hygiene and grooming. Behavior: Patient is seated without any agitated behavior. Not tearful today. Improving eye contact. Speech: Patient's speech is fluent and nonpressured. Mood/Affect: Patient reports their mood is "a bit better", affect is congruent and somewhat anxious. Suicidality/Homicidality: Patient denies having any homicidal ideation intent or plan. Denies any suicidal ideations intent or plan Perceptions: Patient denies any visual hallucinations and denies any auditory hallucinations Though content/process: Focused on her withdrawal symptoms, Improving mildly. More future oriented today. Memory and concentration: AOX3, grossly intact for the purposes of this session Judgment and insight: improving mildly IMPRESSIONS: Bipolar disorder, current episode depressed Suicide attempt by overdose on medications History of opiate dependence, currently in withdrawal Nicotine dependence Plan: -Patient continues to meet criteria for inpatient psychiatric admission for symptom stabilization and safety. Patient has signed adult voluntary form and medication consent and was placed in patient's chart. -Medications: Increase Seroquel to 200 mg daily at bedtime for mood stabilization/sleep, Effexor XR 225 mg daily for mood/anxiety, increase sche duled Vistaril 25 mg 3 times a day for anxiety. -When necessary Ativan and Haldol for agitation/aggression. -Clonidine, Bentyl and loperamide when necessary for opiate withdrawal. -NRT - nicotine patch -SW on board for discharge planning. Encouraged the patient to participate in milieu. Likely discharge tomorrow back home.
[2021-12-04 11:49] VITALS: BMI 37.8
[2021-12-04] MEDS: haloperidoL 5 MG TAB PO PRN (13:13)
[2021-12-04] MEDS: CYCLOBENZAPRINE 10 MG TAB PO PRN (16:53)
--- NOTE | 2021-12-04 16:58 | P.PN ---
Progress Note - Text Progress Note Date: 12/04/21 Presenting complaint: Depression and suicide attempt HOSPITAL course Patient is a 36-year-old female with a PMH of polysubstance abuse who presented to the emergency room with depression and a suicide attempt. The patient was admitted to the mental health unit where she was seen and evaluated. The patient reports that earlier this morning, at around 10:30 AM, she attempted suicide by ingesting 30 tablets of Effexor and 8 Suboxones. The patient reports subsequently inducing vomiting and throwing up some of the pills. She reports feeling somewhat on edge at the time of interview. Denied any additional physical complaints. EKG in the emergency room revealed sinus rhythm at [address]/T-wave changes noted as reviewed by me. Laboratory evaluation was remarkable for potassium of 5.3 (hemolyzed), AST 41 and ALT 38. December 03: Patient is feeling better. Ambulating. Breathing stable. Did eat well. December 04: To sleep in the afternoon. Narcotic withdrawal symptoms better. Oral intake well. Ambulated. Breathing stable. Active Medications Acetaminophen (Acetaminophen Tab 325 Mg Tab) 650 mg PO Q4HR PRN PRN Reason: Pain/Discomfort Last Admin: 12/04/21 08:23 Dose: 650 mg Documented by: Al Hydroxide/Mg Hydroxide (Mag Hydrox/Al Hydrox/Simeth 30 Ml Cup) 30 ml PO Q4HR PRN PRN Reason: GI Upset Clonidine (Clonidine Hcl 0.1 Mg Tab) 0.1 mg PO Q8H PRN PRN Reason: opioid w/d sx Last Admin: 12/04/21 08:24 Dose: 0.1 mg Documented by: Cyclobenzaprine HCl (Cyclobenzaprine 10 Mg Tab) 10 mg PO TID PRN PRN Reason: Muscle Spasm Last Admin: 12/04/21 16:53 Dose: 10 mg Documented by: Dicyclomine HCl (Dicyclomine 20 Mg Tab) 20 mg PO QID PRN PRN Reason: Dyspepsia Famotidine (Famotidine 20 Mg Tab) 20 mg PO BID CASEY Last Admin: 12/04/21 08:20 Dose: 20 mg Documented by: Haloperidol (Haloperidol 5 Mg Tab) 5 mg PO TID PRN PRN Reason: Agitation or Acute Anxiety Last Admin: 12/04/21 13:13 Dose: 5 mg Documented by: Haloperidol Lactate (Haloperidol Lactate 5 Mg/Ml 1 Ml Vial) 5 mg IM Q6HR PRN PRN Reason: Agitation or Acute Psychosis Hydroxyzine Pamoate (Hydroxyzine Pamoate 25 Mg Cap) 25 mg PO TID [facility] Last Admin: 12/04/21 16:53 Dose: 25 mg Documented by: Ibuprofen (Ibuprofen 800 Mg Tab) 800 mg PO Q8H PRN PRN Reason: Pain Last Admin: 12/03/21 20:46 Dose: 800 mg Documented by: Loperamide HCl (Loperamide 2 Mg Cap) 2 mg PO QID PRN PRN Reason: Diarrhea Lorazepam (Lorazepam 1 Mg Tab) 1 mg PO TID PRN PRN Reason: Anxiety, Agitation Last Admin: 12/04/21 13:49 Dose: 1 mg Documented by: Lorazepam (Lorazepam 2 Mg/Ml Inj) 1 mg IM Q6HR PRN PRN Reason: Agitation or Acute Anxiety Magnesium Hydroxide (Magnesium Hydroxide 2,400 Mg/10 Ml Cup) 2,400 mg PO DAILY PRN PRN Reason: Constipation Nicotine (Nicotine 21mg/24hr Patch) 1 patch TRANSDERM DAILY [facility] Last Admin: 12/04/21 08:20 Dose: 1 patch Documented by: Quetiapine Fumarate (Quetiapine 200 Mg Tab) 200 mg PO [facility] Sodium Chloride (Saline Nasal Gel 14.1 Gm Tube) 1 applic NASAL BID PRN PRN Reason: Dry Nasal Passages Venlafaxine HCl (Venlafaxine Hcl Er 75 Mg Cap) 225 mg PO DAILY [facility] Last Admin: 12/04/21 08:20 Dose: 225 mg Documented by: On examination: VITAL SIGNS: 97.4, 87, 16, 99/62, GENERAL APPEARANCE: Comfortable. HEENT: Normal external appearance of nose and ear. Oral cavity normal EYES: Pupils equal. Conjunctiva normal. NECK: JVD not raised. . RESPIRATORY: Respiratory effort normal. Lungs clear to auscultation. CARDIOVASCULAR: First and second sounds normal. No edema. . PSYCHIATRY: Alert and oriented x3. Mood and affect slightly anxious INVESTIGATIONS, reviewed in the clinical context: Sodium 134 potassium 4.5 creatinine 0.68 LDL 180 Serum alcohol less than 10 Urine drug screen positive for tricyclic antidepressants, marijuana COVID 19: PCR: Not detected Assessment and plan: -Opiate withdrawal symptoms: Better Catapres when necessary -Chronic nicotine dependence cigarette smoker Nicotine patch 21 -Recreational marijuana use Advised against the same -Bipolar disorder current episode depressed -Suicide attempt by overdose of medications -Obesity BMI 37.8 Seen by dietitian. Heart healthy diet. -Hyperlipidemia Consult. Consult dietitian. Diet changes. Follow-up with PCP Heart healthy diet. Outpatient repeat hyperlipidemia in few weeks. Catapres when necessary. Discussed with patient. Seen by dietitian.
[2021-12-04] MEDS ORDERED: QUEtiapine 200 MG TAB PO SCH (21:00)
[2021-12-05 06:59] VITALS: BP 124/72; PULSE 101; RESP 14; TEMP 97.9
[2021-12-05] MEDS: VENLAFAXINE HCL ER 75 MG CAP PO SCH (07:58)
[2021-12-05] MEDS: FAMOTIDINE 20 MG TAB PO SCH (07:58)
[2021-12-05] MEDS: hydrOXYzine pamoate 25 MG CAP PO SCH (07:59)
[2021-12-05] MEDS: NICOTINE 21MG/24HR PATCH TRANSDERM SCH (07:59)
[2021-12-05] MEDS: CYCLOBENZAPRINE 10 MG TAB PO PRN (08:00)
[2021-12-05] MEDS: ACETAMINOPHEN TAB 325 MG TAB PO PRN (08:00)
[2021-12-05] MEDS: LORazepam 1 MG TAB PO PRN (08:00)
--- NOTE | 2021-12-05 11:34 | P.DS ---
Providers Date of admission: 12/01/21 18:20 Expected date of discharge: 12/05/21 Attending physician: Esvin Allan MD Consults: 12/01/21 18:25 Consult Physician Routine Consulting Provider: Sonny Givens Consult Reason/Comments: medical management Do you want consulting provider notified?: Already Contacted Primary care physician: Nilson Macedonian - Discharge Diagnosis(es) (1) Bipolar disorder current episode depressed Current Visit: Yes Status: Acute Priority: High (2) Opioid dependence Current Visit: Yes Status: Acute Priority: Medium (3) Nicotine dependence Current Visit: Yes Status: Acute Priority: Low Hospital Course: Admission HPI: Admission note was completed by justowriter operator "Patient is a 36-year-old female who currently lives with her boyfriend in a house has 2 kids that are currently adopted. She is currently between jobs. Patient presented to the hospital and according to ER report patient had overdosed on about 30 tablets of Effexor and was feeling depressed at home at around 10:30 in the morning. Patient was admitted voluntarily to the mental health unit. She was seen by justowriter operator and agreeable to speak in the office. She appeared to be disheveled in appearance and was tearful and appeared to be very anxious. She states that she is going through opiate withdrawals. She claims that she overdosed on 30 tablets of 150 mg of Effexor. She claims that she also home overdosed with 8 tablets of subsolv at home. She states that she used to use heroin however has been opiate free since 02/18/2021. She claims that she has been feeling depressed and anxious lately. She appeared to be visibly upset and was tearful. She spoke about it being a suicide attempt from the overdose because her boyfriend broke up with her. She claims that her had in 2018. She claims that she is feeling better well being homeless and kicked out of the house. She also states that her children were adopted out. She states that she believes that her boyfriend was talking to other girls online and she does not trust him. She claims that also she quit her job one week ago and was supposed to start a job at [employer] within the next couple days. She claims that her boyfriend has high expectations of her and they've been getting into a lot of a rguments. She states that she doesn't want to work as hard however he is making her work so he does not have to. She states that her sleep has been poor. She claims that she has a diagnosis of bipolar disorder was previously on Seroquel as well. She claims that after she overdosed she went to sleep and woke up and then told her roommate who called 911 to bring him into the hospital. Patient de nies any current suicidal or homicidal ideations intent or plan. At this time patient denies any auditory or visual hallucinations. Patient denies any flight of ideas racing thoughts and increased in goal directed behavior. Things that she does have a history of manic episodes. Patient admits to using heroin in the past however is now on opiate replacement therapy. She claims that she smokes cigarettes. Occasional alcohol." Hospital course: Upon admission to the unit patient was directable and agreeable to commence treatment and signed adult voluntary form. Patient got along well with other patients on the unit and followed unit protocol. Patient was compliant with the medications and denied any side effects throughout hospital course. Patient was started on Seroquel and increased to a dose of 20 mg daily at bedtime for mood stabilization/sleep, patient was also restarted back on Effexor and titrated up to dose at 225 mg daily for mood/anxiety. Started on Vistaril 25 mg 3 times a day for anxiety. Patient was also placed on clonidine and Bentyl and loperamide for opiate withdrawal. Patient spoke of her stressors and engaged in therapy both group and individual. Patient was also seen by medical team for history and physical exam. Throughout the course of the hospitalization patient gradually improved with regards to mood, anxiety, sleep and returned back to their baseline level of functioning. On the day of discharge patient denied any suicidal or homicidal ideations intent or plan denied any auditory or visual hallucinations. Patient endorsed wanting to live for her family and her future. The patient denied any access to guns or weapons. Patient denied any paranoia and did not endorse any delusions. Patient does have a significant history of substance abuse and was counseled on abstaining from all substances including alcohol and marijuana. Patient will continue on with her opioid replacement treatment with her PCP upon discharge. Patient was also counseled on the medications and need for regular compliance and was encouraged to follow-up with their outpatient appointment for mental health and also for primary care. Prior to discharge a family meeting will be arranged by social media senior associate to answer any questions and ensure safety upon discharge. Mental status exam: General Appearance: Patient appears to be overweight, wearing glasses, stated age is alert, pleasant, and cooperative. Patient is in no acute distress and has improved hygiene and grooming Behavior: Patient is calmly seated without any agitated behavior. Speech: Patient's speech is fluent and nonpressured. Mood/Affect: Patient reports their mood is "better", affect is congruent and euthymic. Suicidality/Homicidality: Patient denies having any suicidal or homicidal jolie ation intent or plan. Perceptions: Patient denies any auditory or visual hallucinations. Though content/process: There is no evidence of any delusional thought content and thought process is linear and goal-directed. more future oriented Memory and concentration: AOX3, grossly intact for the purposes of this session. Can spell "WORLD" backwards correctly. Judgment and insight: improved with guarded prognosis Impression: Bipolar disorder, current episode depressed Opioid dependence Nicotine dependence Plan: -Continue with discharge today as patient has improved and stabilized psychiatrically and is not currently an imminent threat to herself and/or others. Patient will remain at chronically elevated risk for harm to self and/or others due to her substance abuse. -Continue medications: Seroquel 200 mg daily at bedtime for mood stabilization/sleep, Effexor 225 mg daily for mood/anxiety, Vistaril 25 mg 3 times a day for anxiety. He'll be given a 2 day supply of Ativan when necessary for anxiety to help with opiate withdrawal symptoms. We'll also be given a short supply of clonidine and Bentyl for withdrawal symptoms. -Patient was counseled on the need for medication compliance and appropriate follow-up at mental health and also primary care for medical issues. Patient verbalized understanding and agreed. -Social work to arrange for and conduct family meeting to ensure safety upon discharge and answer any questions/concerns. Social work also to arrange for patients follow up appointments for psychiatric care along with follow up with primary care provider. Patient will also be following up with her PCP for resuming treatment for her opioid dependence -Patient counseled on abstaining from recreational drugs and marijuana and alcohol. Was informed/educated on the adverse effects on their physical and mental health. Patient verbally agreed and understood. -Patient was instructed to return to the hospital or seek immediate medical care if their psychiatric or medical symptoms do worsen or reoccur. Allergies Allergy/AdvReac Type Severity Reaction Status Date / Time Penicillins Allergy Anaphylaxis Verified 12/01/21 14:36 sulfamethoxazole Allergy Anaphylaxis Verified 12/01/21 14:36 [From Bactrim] trimethoprim [From Bactrim] Allergy Anaphylaxis Verified 12/01/21 14:36 Vital Signs Temp 97.9 F 12/05/21 06:26 Pulse 101 H 12/05/21 06:26 Resp 14 12/05/21 06:26 BP 124/72 12/05/21 06:26 Pulse Ox 97 12/05/21 06:26 Intake & Output 12/04/21 12/05/21 12/05/21 18:59 06:59 18:59 Weight 99.79 kg Patient Condition at Discharge: Stable Plan - Discharge Summary New Discharge Prescriptions: New LORazepam [Ativan] 0.5 mg PO BID PRN 2 Days tab PRN Reason: Anxiety Saline Nasal Gel [Tarrs Nasal Gel] 1 applic NASAL BID PRN #1 PRN Reason: Dry Nasal Passages cloNIDine HCL [Catapres] 0.1 mg PO BID PRN 3 Days tab PRN Reason: opioid w/d sx Venlafaxine HCl ER [Effexor XR] 225 mg PO DAILY 30 Days capsule Acetaminophen Tab [Tylenol] 650 mg PO Q4HR PRN tab PRN Reason: Pain/Discomfort hydrOXYzine pamoate [Vistaril] 25 mg PO TID 14 Days cap Nicotine 21Mg/24Hr Patch [Habitrol] 1 patch TRANSDERM DAILY 14 Days patch QUEtiapine [SEROquel] 200 mg PO HS 30 Days tab Continue Cyclobenzaprine [Flexeril] 10 mg PO TID PRN PRN Reason: Muscle Spasm Buprenorphine HCl/Naloxone HCl [Zubsolv 5.7-1.4 mg Tablet Sl] 1 tab SUBLINGUAL TID Ibuprofen [Motrin] 800 mg PO Q8H PRN PRN Reason: Pain Discontinued Venlafaxine HCl [Effexor XR] 150 mg PO DAILY Discharge Medication List Buprenorphine HCl/Naloxone HCl [Zubsolv 5.7-1.4 mg Tablet Sl] 1 tab SUBLINGUAL TID 12/01/21 [History] Cyclobenzaprine [Flexeril] 10 mg PO TID PRN 12/01/21 [History] Ibuprofen [Motrin] 800 mg PO Q8H PRN 12/01/21 [History] Acetaminophen Tab [Tylenol] 650 mg PO Q4HR PRN tab 12/05/21 [Rx] LORazepam [Ativan] 0.5 mg PO BID PRN 2 Days tab 12/05/21 [Rx] Nicotine 21Mg/24Hr Patch [Habitrol] 1 patch TRANSDERM DAILY 14 Days patch 12/05/21 [Rx] QUEtiapine [SEROquel] 200 mg PO HS 30 Days tab 12/05/21 [Rx] Saline Nasal Gel [Tarrs Nasal Gel] 1 applic NASAL BID PRN #1 12/05/21 [Rx] Venlafaxine HCl ER [Effexor XR] 225 mg PO DAILY 30 Days capsule 12/05/21 [Rx] cloNIDine HCL [Catapres] 0.1 mg PO BID PRN 3 Days tab 12/05/21 [Rx] hydrOXYzine pamoate [Vistaril] 25 mg PO TID 14 Days cap 12/05/21 [Rx] Follow up Appointment(s)/Referral(s): [facility] [Other] - 12/10/21 1:00 pm (Rita) Nilson Delatorre MD [Primary Care Provider] - 1-2 days Activity/Diet/Wound Care/Special Instructions: Activity and diet as tolerated. Avoid the use of street drugs and alcohol. Take all medications as prescribed. When you are in need of refills on your medications please contact your medical provider and/or outpatient psychiatrist to have this done. Please go to scheduled outpatient appointment for aftercare treatment. If symptoms return or become worse, call the crisis line at and/or go to the nearest emergency room for evaluation Discharge Disposition: HOME SELF-CARE
== END 2021-12-05 14:00 | disposition home or self-care (01) | DRG 885 ==
LOC: EC 12:01 → 3MHU 18:20
PROVIDERS: ADMIT Psychiatry & Neurology Psychiatry; ATTEND Psychiatry & Neurology Psychiatry
DX: F31.30 Bipolar disorder, current episode depressed, mild or moderate severity, unspecified (principal); F11.23 Opioid dependence with withdrawal; T43.212A Poisoning by selective serotonin and norepinephrine reuptake inhibitors, intentional self-harm, initial encounter; T50.7X2A Poisoning by analeptics and opioid receptor antagonists, intentional self-harm, initial encounter; E66.9 Obesity, unspecified; Z68.37 Body mass index [BMI] 37.0-37.9, adult; E78.5 Hyperlipidemia, unspecified; F17.210 Nicotine dependence, cigarettes, uncomplicated; F41.9 Anxiety disorder, unspecified; K59.00 Constipation, unspecified; Z79.899 Other long term (current) drug therapy; Z98.890 Other specified postprocedural states; R94.5 Abnormal results of liver function studies; Z88.0 Allergy status to penicillin; Z88.2 Allergy status to sulfonamides; Z20.822 Contact with and (suspected) exposure to COVID-19
CPT/HCPCS: 36415; 80053; 80061; 80143; 80179; 80306; 80320; 81025; 82075; 83036; 83721; 85025; 87635; 93005; 99285

== ENCOUNTER 2022-06-21 17:54 | Emergency (ER) | payer MEDICAID, OTHER ==
[2022-06-21] MEDS ORDERED: ACETAMINOPHEN TAB 500 MG TAB PO STA (21:36)
[2022-06-21] MEDS ORDERED: IBUPROFEN 600 MG STARTER PACK 4 TAB BTL PO STA (21:36)
[2022-06-21] MEDS ORDERED: ONDANSETRON 4 MG TAB PO STA (21:36)
[2022-06-21] MEDS ORDERED: IBUPROFEN 800 MG TAB PO STA (21:36)
[2022-06-21] MEDS ORDERED: ONDANSETRON 4 MG ODT STARTER PACK 2 TAB BTL PO STA (21:36)
[2022-06-21 21:49] VITALS: RESP 20
--- NOTE | 2022-06-21 22:03 | ED ---
Recheck HPI - General Chief Complaint: Recheck/Abnormal Lab/Rx Stated Complaint: COVID test Time Seen by Provider: 06/21/22 21:16 Source: patient, RN notes reviewed, old records reviewed Mode of arrival: ambulatory Limitations: no limitations - History of Present Illness Initial Comments: This is a 28-year-old female DF for evaluation. Patient was sent by primary care for evaluation of possible coronavirus. Patient is here for evaluation of having coronavirus sent in by primary employer [employer] test to be able to return to work. Patient has weakness vomiting muscle aches and otherwise not feeling well. No fevers MD Complaint: other (Possible coronavirus) -: days(s) Returns Today for: persistent/worsening pain related to initial visit, other (Nausea vomiting) Symptoms Since Prior Visit: worsening pain, fever Context: other Associated Symptoms: nausea, abdominal pain Treatments Prior to Arrival: other (0) - Related Data Home Medications Medication Instructions Recorded Confirmed Buprenorphine HCl/Naloxone HCl 1 tab SUBLINGUAL TID 12/01/21 12/01/21 [Zubsolv 5.7-1.4 mg Tablet Sl] Cyclobenzaprine [Flexeril] 10 mg PO TID PRN 12/01/21 12/01/21 Ibuprofen [Motrin] 800 mg PO Q8H PRN 12/01/21 12/01/21 Previous Rx's Medication Instructions Recorded Acetaminophen Tab [Tylenol] 650 mg PO Q4HR PRN tab 12/05/21 LORazepam [Ativan] 0.5 mg PO BID PRN 2 Days tab 12/05/21 Nicotine 21Mg/24Hr Patch [Habitrol] 1 patch TRANSDERM DAILY 14 Days 12/05/21 patch QUEtiapine [SEROquel] 200 mg PO HS 30 Days tab 12/05/21 Saline Nasal Gel [[employer] Nasal Gel] 1 applic NASAL BID PRN #1 12/05/21 Venlafaxine HCl ER [Effexor XR] 225 mg PO DAILY 30 Days capsule 12/05/21 cloNIDine HCL [Catapres] 0.1 mg PO BID PRN 3 Days tab 12/05/21 hydrOXYzine pamoate [Vistaril] 25 mg PO TID 14 Days cap 12/05/21 Allergies Allergy/AdvReac Type Severity Reaction Status Date / Time Penicillins Allergy Anaphylaxis Verified 12/01/21 14:36 sulfamethoxazole Allergy Anaphylaxis Verified 12/01/21 14:36 [From Bactrim] trimethoprim [From Bactrim] Allergy Anaphylaxis Verified 12/01/21 14:36 Review of Systems ROS Statement: Those systems with pertinent positive or pertinent negative responses have been documented in the HPI. ROS Other: All systems not noted in ROS Statement are negative. Past Medical History Past Medical History: No Reported History History of Any Multi-Drug Resistant Organisms: None Reported Past Surgical History: Section Additional Past Surgical History / Comment(s): 2 C sections Past Anesthesia/Blood Transfusion Reactions: No Reported Reaction Past Psychological History: Anxiety, Depression Smoking Status: Current every day smoker Past Alcohol Use History: Occasional Past Drug Use History: Cocaine, Heroin, Marijuana General Exam Limitations: no limitations General appearance: alert, in no apparent distress Head exam: Present: atraumatic, normocephalic, normal inspection Eye exam: Present: normal appearance, PERRL, EOMI. Absent: scleral icterus, conjunctival injection, periorbital swelling ENT exam: Present: normal exam, mucous membranes moist Neck exam: Present: normal inspection. Absent: tenderness, meningismus, lymphadenopathy Respiratory exam: Present: normal lung sounds bilaterally. Absent: respiratory distress, wheezes, rales, rhonchi, stridor Cardiovascular Exam: Present: regular rate, normal rhythm, normal heart sounds. Absent: systolic murmur, diastolic murmur, rubs, gallop, clicks GI/Abdominal exam: Present: soft, normal bowel sounds. Absent: distended, tenderness, guarding, rebound, rigid Extremities exam: Present: normal inspection, full ROM, normal capillary refill. Absent: tenderness, pedal edema, joint swelling, calf tenderness Back exam: Present: normal inspection Neurological exam: Present: alert, oriented X3, CN II-XII intact Psychiatric exam: Present: normal affect, normal mood Skin exam: Present: warm, dry, intact, normal color. Absent: rash Course Vital Signs 06/21/22 06/21/22 18:23 21:39 Temperature 98.2 F Pulse Rate 86 Respiratory 16 20 Rate Blood Pressure 116/74 O2 Sat by Pulse 98 Oximetry - Reevaluation(s) Reevaluation #1: 06/21/22 22:03 Medical record is reviewed Reevaluation #2: 06/21/22 23:13 Patient informed results questions answered Reevaluation #3: 06/21/22 23:13 Patient has improvement in symptoms here in the ER Medical Decision Making - Medical Decision Making 28 female with results here in the emergency department. Negative for coronavirus negative for flu patient can be discharged home - Lab Data Lab Results 06/21/22 Range/Units 21:54 Influenza Type A (PCR) Not Detected (Not Detectd) Influenza Type B (PCR) Not Detected (Not Detectd) RSV (PCR) Not Detected (Not Detectd) SARS-CoV-2 (PCR) Not Detected (Not Detectd) - Radiology Data Radiology results: report reviewed (Chest x-rays negative for acute disease), image reviewed Disposition Clinical Impression: Nausea and vomiting Disposition: HOME SELF-CARE Condition: Good Instructions (If sedation given, give patient instructions): Acute Nausea and Vomiting (ED) Is patient prescribed a controlled substance at d/c from ED?: No Referrals: Nilson Delatorre MD [Primary Care Provider] - 1-2 days Time of Disposition: 23:15
[2022-06-21 23:29] VITALS: BP 117/80; PULSE 87; TEMP 97.3
== END 2022-06-21 23:29 | disposition home or self-care (01) ==
LOC: EC 17:54
DX: R11.2 Nausea with vomiting, unspecified (principal); R53.1 Weakness; R10.9 Unspecified abdominal pain; F17.200 Nicotine dependence, unspecified, uncomplicated; Z20.822 Contact with and (suspected) exposure to COVID-19; Z88.0 Allergy status to penicillin; Z88.2 Allergy status to sulfonamides
CPT/HCPCS: 87636; 99284; S0119

== ENCOUNTER 2023-01-30 10:55 | Inpatient (IN) | payer OTHER ==
[2023-01-30 11:54] LABS: Basophils # (A) 0.1 k/uL (0-0.2); Basophils % (A) 0 %; Eosinophils # (A) 0.2 k/uL (0-0.7); Eosinophils % (A) 1 %; HGB 11.7 gm/dL (11.4-16.0); Lymphocytes # (A) 3.4 k/uL (1.0-4.8); Lymphocytes % (A) 22 %; MCH 28.5 pg (25.0-35.0); MCHC 33.6 g/dL (31.0-37.0); MCV 84.9 fL (80.0-100.0); Mean Platelet Volume 9.1; Monocytes # (A) 0.6 k/uL (0-1.0); Monocytes % (A) 4 %; Neutrophils # (A) 10.8 k/uL (1.3-7.7); Neutrophils % (A) 71 %; Platelet Count 339 k/uL (150-450); RBC 4.12 m/uL (3.80-5.40); RDW 13.4 % (11.5-15.5); WBC 15.3 k/uL (3.8-10.6)
[2023-01-30 12:06] LABS: ALT 12 U/L (4-34); AST 15 U/L (14-36); African American GFR (CKD) >90 (>60 ml/min/1.73 sqM); Blood Urea Nitrogen 10 mg/dL (7-17); LDH 213 U/L (120-246); Non-African American GFR(CKD) >90 (>60 ml/min/1.73 sqM); Uric Acid 4.4 mg/dL (3.7-7.4)
[2023-01-30] MEDS ORDERED: OXYTOCIN 10 UNIT/ML 1 ML VIAL IM PRN (12:24)
[2023-01-30] MEDS ORDERED: TRANEXAMIC ACID IN NACL,ISO-OS 1,000 MG in EMPTY BAG 1 BAG IV PRN (12:24)
[2023-01-30] MEDS ORDERED: CITRIC ACID-SODIUM CITRATE 15 ML CUP PO ONE (12:24)
[2023-01-30] MEDS ORDERED: miSOPROStoL 200 MCG TAB PO PRN (12:24)
[2023-01-30] MEDS ORDERED: CARBOPROST TROMETHAMINE 250 MCG/ML 1 ML AMP IM PRN (12:24)
[2023-01-30] MEDS ORDERED: METHYLERGONOVINE 0.2 MG/ML 1 ML AMP IM PRN (12:24)
[2023-01-30] MEDS ORDERED: CLINDAMYCIN 900 MG in DEXTROSE 5% IN WATER 50 ML IVPB ONE ×2 (12:39)
[2023-01-30 12:41] LABS: Creatinine,Urine Random 54.6 mg/dL; Protein/Creatinine Ratio,Urine 0.293
--- NOTE | 2023-01-30 12:56 | P.HPOB ---
History of Present Illness H&P Date: 01/30/23 Chief Complaint: Gestational Hypertension at term Ms. Corona is a 37 year old at 37 weeks and 2 days (by 13 week US) who presents to labor and delivery after having severe-range blood pressures in the office (168/92 > 160/90). She also reports headache and right upper quadrant pain yesterday, but denies these symptoms today. She also denies visual disturbances. She has a history of 2 prior sections and plans to be a repeat section. She also has a history of heroine abuse, she has been clean for 2 years but does use buprenorphine. She has used tobacco this , around 10 cigarettes daily and was previously counseled on the risks of tobacco use in . was also complicated by polyhydramnios with last ultrasound showing an VICENTE of 26. Obstetric history: 2 full term sections. Gestational diabetes was suspected in the second but never confirmed. Maternal serologies: blood type O positive, antibody screen negative, rubella immune, VDRL non-reactive, HBsAg negative, HIV negative, 1 hour GTT 111, GBS n egative. Past Medical History Past Medical History: No Reported History History of Any Multi-Drug Resistant Organisms: None Reported Past Surgical History: Section Additional Past Surgical History / Comment(s): 2 C sections Past Anesthesia/Blood Transfusion Reactions: No Reported Reaction Past Psychological History: Anxiety, Depression Additional Psychological History / Comment(s): on Effexor Smoking Status: Current every day smoker Medications and Allergies Home Medications Medication Instructions Recorded Confirmed Type Buprenorphine HCl/Naloxone HCl 1 tab SUBLINGUAL TID 12/01/21 01/30/23 History [Zubsolv 5.7-1.4 mg Tablet Sl] Venlafaxine HCl [Effexor] 1 tab PO DAILY 01/30/23 01/30/23 History Allergies Allergy/AdvReac Type Severity Reaction Status Date / Time Penicillins Allergy Anaphylaxis Verified 01/30/23 11:36 sulfamethoxazole Allergy Anaphylaxis Verified 01/30/23 11:36 [From Bactrim] trimethoprim [From Bactrim] Allergy Anaphylaxis Verified 01/30/23 11:36 Exam Intake and Output 01/29/23 01/30/23 01/30/23 22:59 06:59 14:59 Other: Weight 135.624 kg Focused physical exam is performed. This is a in no apparent distress. heart tones are reactive and reassuring. Results Result Diagrams: 01/30/23 11:45 01/30/23 11:45 Abnormal Lab Results - Last 24 Hours (Table) 01/30/23 01/30/23 01/30/23 Range/Units 11:45 11:45 11:45 WBC 15.3 H (3.8-10.6) k/uL Neutrophils # 10.8 H (1.3-7.7) k/uL Creatinine 0.46 L (0.52-1.04) mg/dL U Random Total Protein 15 H (<12) mg/dL Assessment and Plan Assessment: 37 year old at 37 weeks and 2 days presenting to triage with gestational hypertension and a history of 2 prior cesareans sections Plan: Admit, NPO, PIHL wnl still waiting on urine P:C. Gent/clinda for surgical ppx given PCN allergy. Will proceed with repeat section. Time with Patient: Less than 30 (10 minutes)
[2023-01-30 13:05] LABS: INR 0.8 (<1.2); Partial Thromboplastin Time 23.8 sec (22.0-30.0); Prothrombin Time 9.2 sec (9.0-12.0)
[2023-01-30] MEDS: GENTAMICIN 440 MG in SODIUM CHLORIDE 0.9% 100 ML IVPB ONE ×2 (13:08→14:50)
[2023-01-30] MEDS ORDERED: MORPHINE SULFATE (PF) 0.3 MG/0.3 ML SYR ONE (13:24)
[2023-01-30] MEDS ORDERED: NALBUPHINE 10 MG/ML (10 ML MDV) ONE (13:24)
[2023-01-30] MEDS ORDERED: ONDANSETRON 4 MG/2 ML VIAL ONE (13:24)
[2023-01-30] MEDS ORDERED: KETOROLAC 15 MG/ML 1 ML VIAL ONE (13:24)
[2023-01-30] MEDS ORDERED: MIDAZOLAM 2 MG/2 ML VIAL ONE (13:24)
[2023-01-30] MEDS ORDERED: fentaNYL (PF) 50 MCG/ML 2 ML AMP ONE (13:24)
[2023-01-30] MEDS ORDERED: NALOXONE 0.4 MG/ML 1 ML VIAL IV PRN ×2 (13:57→14:30)
[2023-01-30] MEDS ORDERED: MORPHINE SULFATE 2 MG/ML SYRINGE IVP PRN (13:57)
[2023-01-30] MEDS ORDERED: NALBUPHINE 10 MG/ML (10 ML MDV) IV PRN (13:57)
[2023-01-30] MEDS ORDERED: METOCLOPRAMIDE 5 MG/ML 2 ML VIAL IVP PRN ×2 (13:57→14:30)
[2023-01-30] MEDS ORDERED: diphenhydrAMINE 50 MG/ML 1 ML VIAL IVP PRN ×3 (13:57→14:30)
[2023-01-30] MEDS ORDERED: ONDANSETRON 4 MG/2 ML VIAL IVP PRN ×2 (13:57→14:30)
[2023-01-30] MEDS ORDERED: diphenhydrAMINE 25 MG CAP PO PRN (14:30)
[2023-01-30] MEDS ORDERED: SIMETHICONE 80 MG CHEWABLE PO PRN (14:30)
[2023-01-30] MEDS ORDERED: diphenhydrAMINE 50 MG CAP PO PRN (14:30)
[2023-01-30] MEDS ORDERED: LANOLIN CREAM 5 GM TUBE TOPICAL PRN (14:30)
[2023-01-30] MEDS ORDERED: ZOLPIDEM 5 MG TAB PO PRN (14:30)
--- NOTE | 2023-01-30 14:30 | P.OP ---
Date of Procedure: 01/30/23 Preoperative Diagnosis: 1. Term IUP at 37 weeks and 2 days 2. Gestational Hypertension 3. Buprenorphine Use During 4. History of 2 Prior Sections Postoperative Diagnosis: Same Procedure(s) Performed: Repeat Lower Transverse Section Implants: None Anesthesia: spinal Surgeon: Radha Duenas Algorithm Design Engineer #1: Gus Araujo IV fluids (ml): 1,300 Urine output (ml): 400 (clear urine) Pathology: other (placenta sent for pathology) Condition: stable Disposition: floor Indications for Procedure: This is a 37 year old at 37 weeks and 2 days with a history of 2 prior sections who was sent from the office with gestational hypertension and intermittently severe-range blood pressures. Delivery by section was recommended fro maternal and well being. The risks of section were discussed including risk of bleeding, infection, damage to surrounding structures such as bladder/bowel/ureters, and risk of post-operative VTE. The patient understands these risks and desires to proceed with repeat section. Operative Findings: Moderate adhesive disease. Viable male . Apgars 8/9. 2 liters of clear amn iotic fluid. Normal uterus, bilateral ovaries, and bilateral fallopian tubes. Description of Procedure: The patient was taken to the operating room where spinal anesthesia was found to be adequate. Gentamicin and Clindamycin were given for infection prophylaxis. She was prepared and draped in the dorsal supine position with a leftward tilt. A Pfannenstiel skin incision was made with the scalpel. The incision was carried down to the fascia with the scalpel. The fascia was incised and extended laterally with Coker scissors. The superior aspect of the fascia was grasped with Oralia clamps. The underlying rectus muscle was dissected off sharply with Coker scissors. In a similar fashion, the inferior aspect of the fascia was elevated with Oralia clamps and the rectus muscle and pyramidalis were dissected off. Excellent hemostasis was achieved with the bovie. The rectus muscle was in the midline down to the level of the pubic symphysis. Pre- peritoneal fatty tissue was bluntly dissected to expose the peritoneum. The peritoneum was found to be free of adherent bowel and entered sharply with Coker scissors. The peritoneal incision was extended superiorly and inferiorly to the bladder reflection with good visualization of the bladder. The bladder blade was inserted and vesicouterine peritoneum was identified. Intraabdominal survey revealed scant, clear peritoneal fluid and the thinned-out lower uterine segment. The vesicouterine peritoneum was opened with scissors and the bladder flap was developed. The bladder blade was repositioned to keep the bladder out of the operative field. The lower uterine segment was incised with a scalpel. The amniotic sac was ruptured with an Allis clamp and clear fluid was noted. The uterine incision was extended bluntly with lateral and upward traction. The fetus was in right occiput transverse position. The head was elevated out of the pelvis with special attention paid to avoid using the uterine incision as a fulcrum. Gentle fundal pressure was applied once the head was brought into the incision. The was delivered with no difficulty. A nuchal cord x1 was reduced. The mouth and nose were suctioned with a bulb. The cord was clamped and cut. The infant was handed off to the logistics director. IV oxytocin was initiated to facilitate uterine contractions. The placenta was delivered intact with manual massage of uterine fundus. The uterus was then exteriorized and the inside of the uterus was gently wiped with a lap sponge to assure complete removal of placental membranes. The uterine incision was closed with a 0-Polysorb suture in a running locked fashion. A second imbricating layer of 0-Polysorb and additional figure of eight sutures with 0-Polysorb were used to achieve hemostasis. The ovaries and tubes were found to be normal. The uterus, tubes, and ovaries were then gently returned to the abdominal cavity. The blood clots and fluid were wiped out of the abdomen and pelvis with moist laparotomy sponges. The uterine incision was reinspected and excellent hemostasis was noted. The fascial layer was closed with a 0-Vicryl suture. The subcutaenous layer was reapproximated with 2-0 Plain Gut. The skin was closed with bryant. The patient tolerated the procedure well. All the counts were correct times two. The patient was taken back to the recovery room in stable condition.
[2023-01-30] MEDS: LACTATED RINGERS 1,000 ML IV SCH (14:51)
[2023-01-30] MEDS ORDERED: NICOTINE 7MG/24HR PATCH TRANSDERM STA (18:00)
[2023-01-30] MEDS: NICOTINE 7MG/24HR PATCH TRANSDERM SCH (18:29)
[2023-01-30] MEDS: ACETAMINOPHEN TAB 500 MG TAB PO SCH ×2 (18:29→21:05)
[2023-01-30] MEDS: BUPRENORPHINE HCL 2 MG SUBLINGUAL SCH (21:04)
[2023-01-30] MEDS: SENNOSIDES-DOCUSATE SODIUM 1 EACH TAB PO SCH (21:09)
[2023-01-31] MEDS: KETOROLAC 15 MG/ML 1 ML VIAL IVP PRN ×3 (00:12→11:47)
[2023-01-31] MEDS: IBUPROFEN 600 MG TAB PO SCH ×2 (03:28→18:56)
[2023-01-31] MEDS: LACTATED RINGERS 1,000 ML IV SCH (03:29)
[2023-01-31] MEDS: ACETAMINOPHEN TAB 500 MG TAB PO SCH ×4 (03:29→21:47)
--- NOTE | 2023-01-31 07:25 | P.PNOBGPC ---
Subjective - Subjective Principal diagnosis: s/p repeat section Interval history: The patient is doing well this morning and had no acute events overnight. She has no complaints this morning. She reports minimal lochia, passing flatus, voiding without difficulty, ambulating, and eating/drinking without nausea or vomiting. is taking formula in the nursery, being scored for KADE. She denies chest pain, shortness of breathing, fevers, or chills overnight. She denies pain or swelling in the legs. Patient denies headache, visual disturbances, RUQ pain. Patient reports: Reports appetite normal, Reports voiding normally, Reports pain well controlled, Reports ambulating normally [place]: doing well, other (in nursery) Objective - Vital Signs Latest vital signs: Vital Signs Temp Pulse Resp BP Pulse Ox 01/31/23 03:31 98.9 F 64 16 130/85 98 01/31/23 00:10 98.4 F 80 16 120/75 97 01/30/23 20:00 16 01/30/23 19:00 97 01/30/23 18:00 14 01/30/23 16:57 14 100 01/30/23 16:30 96.6 F L 62 14 128/80 100 01/30/23 16:00 62 14 126/78 100 01/30/23 15:51 100 01/30/23 15:30 92 14 145/65 100 01/30/23 15:15 67 14 117/73 100 01/30/23 15:00 80 14 120/75 99 01/30/23 14:57 16 01/30/23 14:45 80 16 125/70 01/30/23 14:30 97.0 F L 84 14 132/71 01/30/23 12:01 96.6 F L 82 16 168/89 01/30/23 11:34 96.6 F L 82 14 168/89 Intake and Output 01/30/23 01/31/23 01/31/23 22:59 06:59 14:59 Output Total 1510 1000 Balance -1510 -1000 Output: Urine 750 1000 Output, Quantitative 760 Blood Loss - Exam Extremities: Present: normal Abdomen: Present: normal appearance, soft Incision: Present: normal, dry, intact, other (bryant) Uterus: Present: normal, firm - Labs Labs: Abnormal Lab Results - Last 24 Hours (Table) 01/30/23 01/30/23 01/30/23 Range/Units 11:45 11:45 11:45 WBC 15.3 H (3.8-10.6) k/uL Neutrophils # 10.8 H (1.3-7.7) k/uL Creatinine 0.46 L (0.52-1.04) mg/dL U Random Total Protein 15 H (<12) mg/dL Assessment and Plan Assessment: 37 year old now POD#1 s/p repeat LTCS at 37 weeks and 2 days for gestational hypertension Plan: 1. Postoperative. Patient meeting milestones appropriately, continue to monitor. 2. Gestational. Majority of BPs have been normotensive with intermittent mild-range pressures. Continue to monitor. 3. Viable male infant. In the nursery, being scored for KADE. Patient desires circumcision when infant is ready. Dispo: Anticipate discharge home on POD 3-4.
--- NOTE | 2023-01-31 07:51 | P.PN ---
Progress Note - Text Date: 01/31/2023 Time: 07:31 The patient is status post section Vital signs stable VAS: 0-10 Patient has no complaints of pain. The patient incurred some minimal itching yesterday, this itching is now subsiding. Pain meds to be managed by service.
[2023-01-31] MEDS: SENNOSIDES-DOCUSATE SODIUM 1 EACH TAB PO SCH ×2 (08:53→21:44)
[2023-01-31] MEDS: VENLAFAXINE HCL ER 75 MG CAP PO SCH (08:53)
[2023-01-31] MEDS: BUPRENORPHINE HCL 2 MG SUBLINGUAL SCH ×3 (08:54→21:44)
[2023-01-31 10:09] LABS: Basophils % (A) 0 %; Eosinophils # (A) 0.2 k/uL (0-0.7); Eosinophils % (A) 1 %; HCT 30.9 % (34.0-46.0); HGB 10.2 gm/dL (11.4-16.0); Lymphocytes # (A) 2.7 k/uL (1.0-4.8); Lymphocytes % (A) 16 %; MCH 27.9 pg (25.0-35.0); MCV 84.4 fL (80.0-100.0); Mean Platelet Volume 10.6; Monocytes % (A) 6 %; Neutrophils # (A) 13.1 k/uL (1.3-7.7); Neutrophils % (A) 76 %; Platelet Count 251 k/uL (150-450); RBC 3.66 m/uL (3.80-5.40); RDW 13.4 % (11.5-15.5); WBC 17.1 k/uL (3.8-10.6)
[2023-01-31] MEDS: NICOTINE 7MG/24HR PATCH TRANSDERM SCH (18:07)
[2023-02-01] MEDS: IBUPROFEN 600 MG TAB PO SCH ×4 (00:48→20:32)
[2023-02-01] MEDS: ACETAMINOPHEN TAB 500 MG TAB PO SCH ×4 (04:17→22:43)
[2023-02-01] MEDS: SENNOSIDES-DOCUSATE SODIUM 1 EACH TAB PO SCH ×2 (07:53→20:32)
[2023-02-01] MEDS: VENLAFAXINE HCL ER 75 MG CAP PO SCH (09:27)
[2023-02-01] MEDS: BUPRENORPHINE HCL 2 MG SUBLINGUAL SCH ×3 (09:27→22:43)
--- NOTE | 2023-02-01 10:48 | P.PNOBGPC ---
Subjective - Subjective Principal diagnosis: s/p repeat section, gestational hypertension Interval history: The patient is doing well this morning and had no acute events overnight. She has no complaints this morning. She reports minimal lochia, passing flatus, voiding without difficulty, ambulating, and eating/drinking without nausea or vomiting. is in the nursery, formula feeding. She denies chest pain, shortness of breathing, fevers, or chills overnight. She denies pain or swelling in the legs. She denies headache, visual disturbances, and RUQ pain. Patient reports: Reports appetite normal, Reports voiding normally, Reports pain well controlled, Reports ambulating normally : doing well Objective - Vital Signs Latest vital signs: Vital Signs Temp Pulse Resp BP 02/01/23 07:59 97.7 F 77 16 122/81 01/31/23 11:39 97.8 F 73 16 138/89 - Exam Extremities: Present: normal Abdomen: Present: normal appearance Incision: Present: normal, dry, intact, other (bryant) Uterus: Present: normal, firm Assessment and Plan Assessment: 37 year old now POD#2 s/p repeat LTCS at 37 weeks and 2 days for gestational hypertension Plan: 1. Postoperative. Patient meeting milestones appropriately, continue to monitor. 2. Gestational HTN. BPs normotensive for >24 hours 3. Viable male infant. In the nursery, being scored for KADE. Patient desires circumcision when infant is ready. Dispo: Anticipate discharge home on POD 3-4.
[2023-02-01] MEDS: NICOTINE 7MG/24HR PATCH TRANSDERM SCH (16:14)
[2023-02-02] MEDS: IBUPROFEN 600 MG TAB PO SCH ×4 (04:21→18:02)
[2023-02-02] MEDS: ACETAMINOPHEN TAB 500 MG TAB PO SCH ×3 (07:58→21:27)
[2023-02-02] MEDS: SENNOSIDES-DOCUSATE SODIUM 1 EACH TAB PO SCH ×2 (07:58→21:27)
--- NOTE | 2023-02-02 08:19 | P.PNOBGPC ---
Subjective - Subjective Principal diagnosis: s/p repeat section Interval history: The patient is doing well this morning and had no acute events overnight. She has no complaints this morning. She reports minimal lochia, passing flatus, voiding without difficulty, ambulating, and eating/drinking without nausea or vomiting. doing well in nursery, being scored for KADE. She is formula feeding. She denies chest pain, shortness of breathing, fevers, or chills overnight. She denies pain or swelling in the legs. Patient reports: Reports appetite normal, Reports voiding normally, Reports pain well controlled, Reports ambulating normally, Reports other (bryant) : doing well, other (in nursery) Objective - Vital Signs Latest vital signs: Vital Signs Temp Pulse Resp BP Pulse Ox 02/02/23 04:24 77 15 121/77 98 02/01/23 23:00 98.5 F 88 16 138/89 99 02/01/23 16:19 98.6 F 86 16 140/80 99 - Exam Extremities: Present: edema (+2 on left (this side is always more swollen than right 2/2 joint surgery), +1 on right) Abdomen: Present: normal appearance, soft Incision: Present: normal, dry, intact Uterus: Present: normal, firm Assessment and Plan Assessment: 37 year old now POD#3 s/p repeat LTCS at 37 weeks and 2 days for gestational hypertension Plan: 1. Postoperative. Patient meeting milestones appropriately, continue to monitor. 2. Gestational HTN. BPs normotensive to mild range over past 24 hours, all BPs <150/90 3. Viable male . In the nursery, being scored for KADE. Patient desires circumcision when is ready. Dispo: Anticipate discharge home tomorrow.
[2023-02-02] MEDS: BUPRENORPHINE HCL 2 MG SUBLINGUAL SCH ×3 (09:16→21:28)
[2023-02-02] MEDS: VENLAFAXINE HCL ER 75 MG CAP PO SCH (09:17)
[2023-02-02] MEDS: NICOTINE 7MG/24HR PATCH TRANSDERM SCH (09:17)
[2023-02-03] MEDS: IBUPROFEN 600 MG TAB PO SCH ×3 (00:30→08:01)
[2023-02-03] MEDS: ACETAMINOPHEN TAB 500 MG TAB PO SCH ×3 (00:39→11:57)
[2023-02-03] MEDS: SENNOSIDES-DOCUSATE SODIUM 1 EACH TAB PO SCH (08:02)
--- NOTE | 2023-02-03 09:13 | P.PNOBGPC ---
Subjective - Subjective Principal diagnosis: s/p repeat section Interval history: The patient is doing well this morning and had no acute events overnight. She has no complaints this morning. She reports minimal lochia, passing flatus, voiding without difficulty, ambulating, and eating/drinking without nausea or vomiting. in the nursery, formula-feeding. She denies chest pain, shortness of breathing, fevers, or chills overnight. She denies pain or swelling in the legs. Patient reports: Reports appetite normal, Reports voiding normally, Reports pain well controlled, Reports ambulating normally [place]: doing well Objective - Vital Signs Latest vital signs: Vital Signs Temp Pulse Resp BP Pulse Ox 02/03/23 08:00 97.5 F L 84 16 135/84 98 02/03/23 00:00 98.2 F 85 18 125/73 99 02/02/23 15:16 98.0 F 73 16 138/74 - Exam Extremities: Present: normal Abdomen: Present: normal appearance, soft Incision: Present: normal, dry, intact, other (bryant) Uterus: Present: normal, firm Assessment and Plan Assessment: 37 year old now POD#4 s/p repeat LTCS at 37 weeks and 2 days for gestational hypertension Plan: 1. Postoperative. Patient meeting milestones appropriately, continue to monitor. 2. Gestational HTN. BPs normotensive over past 24 hours 3. Viable male infant. In the nursery, being scored for KADE. Patient desires circumcision when is ready. Dispo: Discharge home today.
--- NOTE | 2023-02-03 09:17 | P.DS ---
Providers Date of admission: 01/30/23 12:00 Expected date of discharge: 02/03/23 Attending physician: Radha Duenas MD Primary care physician: Stated None Hospital Course: This is a 37-year-old 3 para 3003 who is now postoperative day #4 status post a repeat section at 37 weeks and 2 days for gestational hypertension. She desires discharge home today. She is meeting all postoperative milestones appropriately. Her blood pressures have been overwhelmingly normotensive with 2-3 intermittent mild range blood pressures. All blood pressures have been less than 150/90. Postoperative care of the incision was reviewed with the patient. Her bryant will be removed today. She is encouraged to call the office if she experiences any heavy bleeding, foul-smelling vaginal discharge, severe pain, fevers or chills, headache, visual disturbances, or right upper quadrant pain. Pelvic rest for 6 weeks is encouraged. I reviewed the lifting restrictions of no heavier than 15 pounds for 6 weeks with the patient. She will follow up in the office in 1 week for a blood pressure check. All questions answered. Assessment: 37 year old POD#4 s/p rLTCS at 37 weeks and 2 days 2/2 gHTN Patient Condition at Discharge: Good Plan - Discharge Summary Discharge Rx Participant: No New Discharge Prescriptions: No Action Buprenorphine HCl/Naloxone HCl [Zubsolv 5.7-1.4 mg Tablet Sl] 1 tab SUBLINGUAL TID Venlafaxine HCl [Effexor] 1 tab PO DAILY Discharge Medication List Buprenorphine HCl/Naloxone HCl [Zubsolv 5.7-1.4 mg Tablet Sl] 1 tab SUBLINGUAL TID 12/01/21 [History] Venlafaxine HCl [Effexor] 1 tab PO DAILY 01/30/23 [History] Follow up Appointment(s)/Referral(s): Radha Duenas MD [STAFF PHYSICIAN] - 1 Week (blood pressure check) Patient Instructions/Handouts: (DC), Hypertension During (DC), Depression (DC), Bleeding (DC) Activity/Diet/Wound Care/Special Instructions: Pelvic rest for 6 weeks. No lifting heavier than 15 pounds for 6 weeks. Discharge Disposition: HOME SELF-CARE
[2023-02-03] MEDS: BUPRENORPHINE HCL 2 MG SUBLINGUAL SCH (09:18)
[2023-02-03] MEDS: VENLAFAXINE HCL ER 75 MG CAP PO SCH (09:19)
[2023-02-03] MEDS: NICOTINE 7MG/24HR PATCH TRANSDERM SCH (09:19)
[2023-02-03 16:00] VITALS: BP 134/83; PULSE 101; RESP 20; TEMP 97.4
== END 2023-02-03 16:02 | disposition home or self-care (01) | DRG 540 ==
LOC: FBPOP 10:55 → 4FBP 12:00
PROVIDERS: ADMIT Obstetrics & Gynecology; ATTEND Obstetrics & Gynecology
PROC: 10D00Z1 Extraction of Products of Conception, Low, Open Approach (ICD-10-PCS; principal; 2023-01-30 13:00)
DX: O13.4 Gestational [pregnancy-induced] hypertension without significant proteinuria, complicating childbirth (principal); O34.211 Maternal care for low transverse scar from previous cesarean delivery; Z37.0 Single live birth; Z3A.37 37 weeks gestation of pregnancy
CPT/HCPCS: 59025; 82565; 82570; 83615; 84156; 84450; 84460; 84520; 84550; 85025; 85610; 85730; 86850; 86900; 86901; 88307; 99215

== ENCOUNTER 2023-02-11 03:29 | Emergency (ER) | payer OTHER ==
[2023-02-11] MEDS ORDERED: SODIUM CHLORIDE 0.9% 500 ML 500 ML IV STA (04:27)
[2023-02-11] MEDS ORDERED: TRANEXAMIC ACID IVPB ONE (04:30)
[2023-02-11 05:07] LABS: Basophils # (A) 0.1 k/uL (0-0.2); Basophils % (A) 0 %; Eosinophils # (A) 0.3 k/uL (0-0.7); Eosinophils % (A) 1 %; HCT 29.8 % (34.0-46.0); HGB 9.8 gm/dL (11.4-16.0); Lymphocytes # (A) 3.7 k/uL (1.0-4.8); Lymphocytes % (A) 19 %; MCH 27.2 pg (25.0-35.0); MCHC 32.8 g/dL (31.0-37.0); MCV 82.9 fL (80.0-100.0); Mean Platelet Volume 7.7; Monocytes # (A) 0.9 k/uL (0-1.0); Monocytes % (A) 5 %; Neutrophils # (A) 13.8 k/uL (1.3-7.7); Neutrophils % (A) 72 %; RDW 13.6 % (11.5-15.5); WBC 19.2 k/uL (3.8-10.6)
[2023-02-11 05:14] LABS: Platelet Count 576 k/uL (150-450)
[2023-02-11 05:16] LABS: INR 0.9 (<1.2); Partial Thromboplastin Time 27.2 sec (22.0-30.0)
[2023-02-11 05:21] LABS: ALT 15 U/L (4-34); AST 13 U/L (14-36); African American GFR (CKD) >90 (>60 ml/min/1.73 sqM); Albumin 3.4 g/dL (3.5-5.0); Alkaline Phosphatase 155 U/L (38-126); Anion Gap 11 mmol/L; Blood Urea Nitrogen 13 mg/dL (7-17); Calcium 8.6 mg/dL (8.4-10.2); Carbon Dioxide 22 mmol/L (22-30); Chloride 103 mmol/L (98-107); Glucose 112 mg/dL (74-99); Non-African American GFR(CKD) >90 (>60 ml/min/1.73 sqM); Potassium 4.4 mmol/L (3.5-5.1); Sodium 136 mmol/L (137-145); Total Bilirubin 0.3 mg/dL (0.2-1.3); Total Protein 6.4 g/dL (6.3-8.2)
--- NOTE | 2023-02-11 06:05 | ED ---
Female Urogenital HPI - General Chief complaint: Vaginal Bleeding Stated complaint: BLEEDING AFTER HAVING BABY Time Seen by Provider: 02/11/23 04:00 Source: patient Mode of arrival: ambulatory Limitations: no limitations - History of Present Illness Initial comments: This patient is a 37-year-old woman who presents to have evaluation of vaginal bleeding and some cramping. The patient states she had section delivery nearly 2 weeks ago. It sounds like section performed due to previous C-sections. The patient states she has had a little bit of vaginal bleeding since that time and then tonight past a large clot and has bled through a number of pads. She denies symptoms of anemia, no lightheadedness, no chest pain, palpitations, dyspnea. She denies abdominal pain but has had a little bit of pelvic cramping. MD Complaint: vaginal bleeding -: hour(s) Location: suprapubic Radiation: non-radiating Severity: mild Quality: cramping Consistency: intermittent Improves with: none Worsens with: none Patient : No Associated Symptoms: vaginal bleeding - Related Data Home Medications Medication Instructions Recorded Confirmed Buprenorphine HCl/Naloxone HCl 1 tab SUBLINGUAL TID 12/01/21 01/30/23 [Zubsolv 5.7-1.4 mg Tablet Sl] Venlafaxine HCl [Effexor] 1 tab PO DAILY 01/30/23 01/30/23 Allergies Allergy/AdvReac Type Severity Reaction Status Date / Time Penicillins Allergy Anaphylaxis Verified 02/11/23 03:37 sulfamethoxazole Allergy Anaphylaxis Verified 02/11/23 03:37 [From Bactrim] trimethoprim [From Bactrim] Allergy Anaphylaxis Verified 02/11/23 03:37 Review of Systems ROS Statement: Those systems with pertinent positive or pertinent negative responses have been documented in the HPI. ROS Other: All systems not noted in ROS Statement are negative. Constitutional: Denies: fever, chills, weakness Respiratory: Denies: cough, dyspnea Cardiovascular: Denies: chest pain, palpitations, syncope Gastrointestinal: Reports: as per HPI, abdominal pain. Denies: nausea, vomiting, diarrhea Genitourinary: Reports: as per HPI, other (Recent ). Denies: dysuria, hematuria Musculoskeletal: Denies: back pain Skin: Denies: rash Neurological: Denies: headache, weakness Hematological/Lymphatic: Denies: easy bleeding Past Medical History Past Medical History: No Reported History History of Any Multi-Drug Resistant Organisms: None Reported Past Surgical History: Section Additional Past Surgical History / Comment(s): 3 C sections Past Anesthesia/Blood Transfusion Reactions: No Reported Reaction Past Psychological History: Anxiety, Depression Smoking Status: Current every day smoker Past Alcohol Use History: None Reported Past Drug Use History: Marijuana - Past Family History Mother Family Medical History: No Reported History General Exam Limitations: no limitations General appearance: alert, in no apparent distress Head exam: Present: atraumatic, normocephalic Eye exam: Present: normal appearance. Absent: scleral icterus, conjunctival injection Neck exam: Present: normal inspection Respiratory exam: Present: normal lung sounds bilaterally. Absent: respiratory distress, wheezes, rales, rhonchi, stridor Cardiovascular Exam: Present: regular rate, normal rhythm, normal heart sounds. Absent: systolic murmur, diastolic murmur, rubs, gallop GI/Abdominal exam: Present: soft, other (The patient's incision has normal appearance at this time, intact, no erythema, warmth, drainage). Absent: distended, tenderness, guarding, rebound, rigid, mass Extremities exam: Present: normal inspection, normal capillary refill. Absent: pedal edema, calf tenderness Back exam: Present: normal inspection. Absent: CVA tenderness (R), CVA tenderness (L) Neurological exam: Present: alert Skin exam: Present: warm, dry, intact, normal color. Absent: rash Course Vital Signs 02/11/23 02/11/23 02/11/23 03:31 05:01 06:00 Temperature 98.6 F 98.2 F Pulse Rate 94 70 89 Respiratory 18 18 16 Rate Blood Pressure 122/74 115/68 120/85 O2 Sat by Pulse 98 98 98 Oximetry Medical Decision Making - Medical Decision Making This patient is a 37-year-old woman having vaginal bleeding nearly 2 weeks out from section. The patient did have labs here, and her hemoglobin is approximately similar to following the . She did have TXA here as well as some fluids. On reevaluation, she is feeling well and states that bleeding seems to have slowed. She would like to go home. We discussed appropriate further care and follow-up as well as return parameters. Was pt. sent in by a medical professional or institution (Dr., PA, TEAM FACILITATOR, urgent care, hospital, or prison...) When possible be specific @ -[No] Did you speak to anyone other than the patient for history (EMS, parent, family, police, friend...)? What history was obtained from this source @ -[No] Did you review nursing and triage notes (agree or disagree)? Why? @ -[I reviewed and agree with nursing and triage notes] Were old charts reviewed (outside hosp., previous admission, EMS record, old EKG, old radiological studies, urgent care reports/EKG's, prison records)? Report findings @ -[old charts were reviewed] Differential Diagnosis (chest pain, altered mental status, abdominal pain women, abdominal pain men, vaginal bleeding, weakness, fever, dyspnea, syncope, headache, dizziness, GI bleed, back pain, seizure, CVA, palpatations, mental health, musculoskeletal)? @ -[Differential Abdominal Pain Women: Appendicitis, Cholecystitis, diverticulosis, ischemic bowel, pancreatitis, hepatitis, UTI, gastroenteritis, AAA, incarcerated hernia, bowel obstruction, constipation, inflammatory bowel, hepatitis, peptic ulcer disease, splenic infar ction, perforated viscus, vulvitis, ovarian torsion, PID, kidney stone, placenta abruption, this is not meant to be an all-inclusive list EKG interpreted by me (3pts min.). @ -[ X-rays interpreted by me (1pt min.). @ -[None done] CT interpreted by me (1pt min.). @ -[None done] U/S interpreted by me (1pt. min.). @ -[None done] What testing was considered but not performed or refused? (CT, X-rays, U/S, labs)? Why? @ -[None] What meds were considered but not given or refused? Why? @ -[None] Did you discuss the management of the patient with other professionals (professionals i.e. [employer] [place], TEAM FACILITATOR, lab, RT, psych nurse, child protective services social worker, kennel assistant, teacher, chief security officer, bilingual case manager)? Give summary @ -[No] Was smoking cessation discussed for >3mins.? @ -[No] Was critical care preformed (if so, how long)? @ -[No] Were there social determinants of health that impacted care today? How? (Homelessness, low income, unemployed, alcoholism, drug addiction, transportation, low edu. Level, literacy, decrease access to med. care, snf, rehab)? @ -[No] Was there de-escalation of care discussed even if they declined (Discuss DNR or withdrawal of care, Hospice)? DNR status @ -[No] What co-morbidities impacted this encounter? (DM, HTN, Smoking, COPD, CAD, Cancer, CVA, ARF, Chemo, Hep., AIDS, mental health diagnosis, sleep apnea, morbid obesity)? @ -[None] Was patient admitted / discharged? Hospital course, mention meds given and r oute, prescriptions, significant lab abnormalities, going to OR and other pertinent info. @ -[As above, discharged Undiagnosed new problem with uncertain prognosis? @ -[No] Drug Therapy requiring intensive monitoring for toxicity (Heparin, Nitro, Insulin, Cardizem)? @ -[No] Were any procedures done? @ -[No] Diagnosis/symptom? @ - vaginal bleeding. Mild anemia, Acute, or Chronic, or Acute on Chronic? @ -[Acute Uncomplicated (without systemic symptoms) or Complicated (systemic symptoms)? @ -[Uncomplicated Side effects of treatment? @ -[No] Exacerbation, Progression, or Severe Exacerbation? @ -[No] Poses a threat to life or bodily function? How? (Chest pain, [place], [place], pneumonia, PE, COPD, DKA, ARF, appy, cholecystitis, CVA, Diverticulitis, Homicidal, Suicidal, threat to staff... and all critical care pts) @ -[No] - Lab Data Result diagrams: 02/11/23 04:44 02/11/23 04:44 Lab Results 02/11/23 02/11/23 02/11/23 Range/Units 04:40 04:44 04:44 WBC 19.2 H (3.8-10.6) k/uL RBC 3.60 L (3.80-5.40) m/uL Hgb 9.8 L (11.4-16.0) gm/dL Hct 29.8 L (34.0-46.0) % MCV 82.9 (80.0-100.0) fL MCH 27.2 (25.0-35.0) pg MCHC 32.8 (31.0-37.0) g/dL RDW 13.6 (11.5-15.5) % Plt Count 576 H D (150-450) k/uL MPV 7.7 Neutrophils % 72 % Lymphocytes % 19 % Monocytes % 5 % Eosinophils % 1 % Basophils % 0 % Neutrophils # 13.8 H (1.3-7.7) k/uL Lymphocytes # 3.7 (1.0-4.8) k/uL Monocytes # 0.9 (0-1.0) k/uL Eosinophils # 0.3 (0-0.7) k/uL Basophils # 0.1 (0-0.2) k/uL PT 10.0 (9.0-12.0) sec INR 0.9 (<1.2) APTT 27.2 (22.0-30.0) sec Sodium (137-145) mmol/L Potassium (3.5-5.1) mmol/L Chloride (98-107) mmol/L Carbon Dioxide (22-30) mmol/L Anion Gap mmol/L BUN (7-17) mg/dL Creatinine (0.52-1.04) mg/dL Est GFR (CKD-EPI)AfAm (>60 ml/min/1.73 sqM) Est GFR (CKD-EPI)NonAf (>60 ml/min/1.73 sqM) Glucose (74-99) mg/dL Plasma Lactic Acid Newton (0.7-2.0) mmol/L Calcium (8.4-10.2) mg/dL Total Bilirubin (0.2-1.3) mg/dL AST (14-36) U/L ALT (4-34) U/L Alkaline Phosphatase (38-126) U/L Total Protein (6.3-8.2) g/dL Albumin (3.5-5.0) g/dL Blood Type O Positive Blood Type Recheck O Pos Bld Type Recheck Status No Antibody Screen NEGATIVE Spec Expiration Date 02/14/2023233902/11/23 02/11/23 Range/Units 04:44 04:44 WBC (3.8-10.6) k/uL RBC (3.80-5.40) m/uL Hgb (11.4-16.0) gm/dL Hct (34.0-46.0) % MCV (80.0-100.0) fL MCH (25.0-35.0) pg MCHC (31.0-37.0) g/dL RDW (11.5-15.5) % Plt Count (150-450) k/uL MPV Neutrophils % % Lymphocytes % % Monocytes % % Eosinophils % % Basophils % % Neutrophils # (1.3-7.7) k/uL Lymphocytes # (1.0-4.8) k/uL Monocytes # (0-1.0) k/uL Eosinophils # (0-0.7) k/uL Basophils # (0-0.2) k/uL PT (9.0-12.0) sec INR (<1.2) APTT (22.0-30.0) sec Sodium 136 L (137-145) mmol/L Potassium 4.4 (3.5-5.1) mmol/L Chloride 103 (98-107) mmol/L Carbon Dioxide 22 (22-30) mmol/L Anion Gap 11 mmol/L BUN 13 (7-17) mg/dL Creatinine 0.53 (0.52-1.04) mg/dL Est GFR (CKD-EPI)AfAm >90 (>60 ml/min/1.73 sqM) Est GFR (CKD-EPI)NonAf >90 (>60 ml/min/1.73 sqM) Glucose 112 H (74-99) mg/dL Plasma Lactic Acid Newton 0.7 (0.7-2.0) mmol/L Calcium 8.6 (8.4-10.2) mg/dL Total Bilirubin 0.3 (0.2-1.3) mg/dL AST 13 L (14-36) U/L ALT 15 (4-34) U/L Alkaline Phosphatase 155 H (38-126) U/L Total Protein 6.4 (6.3-8.2) g/dL Albumin 3.4 L (3.5-5.0) g/dL Blood Type Blood Type Recheck Bld Type Recheck Status Antibody Screen Spec Expiration Date Disposition Clinical Impression: Vaginal bleeding Disposition: HOME SELF-CARE Condition: Good Instructions (If sedation given, give patient instructions): Bleeding (ED) Is patient prescribed a controlled substance at d/c from ED?: No Referrals: Radha Duenas MD [Primary Care Provider] - 1-2 days
[2023-02-11 06:11] VITALS: BP 120/85; PULSE 89; RESP 16; TEMP 98.2
== END 2023-02-11 06:11 | disposition home or self-care (01) ==
LOC: EC 03:29
DX: N93.9 Abnormal uterine and vaginal bleeding, unspecified (principal); F41.9 Anxiety disorder, unspecified; F32.A Depression, unspecified; F17.200 Nicotine dependence, unspecified, uncomplicated; F12.90 Cannabis use, unspecified, uncomplicated; Z79.899 Other long term (current) drug therapy; Z88.0 Allergy status to penicillin; Z88.2 Allergy status to sulfonamides
CPT/HCPCS: 36415; 80053; 83605; 85025; 85610; 85730; 86850; 86900; 86901; 96360; 99284

== ENCOUNTER 2023-10-02 14:49 | Emergency (ER) | payer OTHER ==
--- NOTE | 2023-10-02 16:49 | ED ---
General Adult HPI - General Source: patient, RN notes reviewed Mode of arrival: ambulatory Limitations: no limitations <Maggie Coleman - Last Filed: 10/02/23 16:47> - General Source: RN notes reviewed, old records reviewed Mode of arrival: ambulatory Limitations: no limitations - History of Present Illness -: days(s) (3) Location: mouth Radiation: non-radiation Severity scale (1-10): 7 Quality: sharp Consistency: constant Improves with: none Worsens with: none Associated Symptoms: denies other symptoms Treatments Prior to Arrival: none <Luis Escamilla - Last Filed: 10/12/23 06:03> - General Chief complaint: Dental/Oral Stated complaint: abcess inside mouth,swelling Time Seen by Provider: 10/02/23 16:47 - History of Present Illness Initial comments: 38 year old female presents to the emergency department for evaluation of dental abscess x3 days. She states that she has a tooth missing and has an abscess in the location of that tooth. She states that today she noticed swelling to her upper lip. She admits to chills last night. (Maggie Coleman) This is a 38-year-old female DF for evaluation of a dental abscess getting worse for a few days. Pain is swelling or significant without fever (Luis Escamilla) - Related Data Home Medications Medication Instructions Recorded Confirmed Buprenorphine HCl/Naloxone HCl 1 tab SUBLINGUAL TID 12/01/21 01/30/23 [Zubsolv 5.7-1.4 mg Tablet Sl] Venlafaxine HCl [Effexor] 1 tab PO DAILY 01/30/23 01/30/23 Previous Rx's Medication Instructions Recorded Clindamycin [Cleocin] 450 mg PO Q6H #28 cap 10/02/23 Allergies Allergy/AdvReac Type Severity Reaction Status Date / Time Penicillins Allergy Anaphylaxis Verified 02/11/23 03:37 sulfamethoxazole Allergy Anaphylaxis Verified 02/11/23 03:37 [From Bactrim] trimethoprim [From Bactrim] Allergy Anaphylaxis Verified 02/11/23 03:37 Review of Systems ROS Other: All systems not noted in ROS Statement are negative. <Maggie Coleman - Last Filed: 10/02/23 16:47> ROS Other: All systems not noted in ROS Statement are negative. <Luis Escamilla - Last Filed: 10/12/23 06:03> ROS Statement: Those systems with pertinent positive or pertinent negative responses have been documented in the HPI. Past Medical History Past Medical History: No Reported History Additional Past Medical History / Comment(s): opiate abuse History of Any Multi-Drug Resistant Organisms: None Reported Past Surgical History: Section Additional Past Surgical History / Comment(s): 3 C sections Past Anesthesia/Blood Transfusion Reactions: No Reported Reaction Past Psychological History: Anxiety, Depression Smoking Status: Current every day smoker Past Alcohol Use History: None Reported Past Drug Use History: Marijuana, Opiates - Past Family History Mother Family Medical History: No Reported History <Maggie Coleman - Last Filed: 10/02/23 16:47> General Exam Limitations: no limitations <Maggie Coleman - Last Filed: 10/02/23 16:47> General appearance: alert, in no apparent distress Head exam: Present: atraumatic, normocephalic, normal inspection Eye exam: Present: normal appearance, PERRL, EOMI. Absent: scleral icterus, conjunctival injection, periorbital swelling ENT exam: Present: normal exam, mucous membranes moist Neck exam: Present: normal inspection. Absent: tenderness, meningismus, lymphadenopathy Respiratory exam: Present: normal lung sounds bilaterally. Absent: respiratory distress, wheezes, rales, rhonchi, stridor Cardiovascular Exam: Present: regular rate, normal rhythm, normal heart sounds. Absent: systolic murmur, diastolic murmur, rubs, gallop, clicks GI/Abdominal exam: Present: soft, normal bowel sounds. Absent: distended, tenderness, guarding, rebound, rigid Extremities exam: Present: normal inspection, full ROM, normal capillary refill. Absent: tenderness, pedal edema, joint swelling, calf tenderness Back exam: Present: normal inspection Neurological exam: Present: alert, oriented X3, CN II-XII intact Psychiatric exam: Present: normal affect, normal mood Skin exam: Present: warm, dry, intact, normal color. Absent: rash <Luis Escamilla - Last Filed: 10/12/23 06:03> - General Exam Comments Initial Comments: Visual Physical Exam Vital signs reviewed General: Well-appearing, nontoxic, no acute distress. Head: Normocephalic, atraumatic Eyes: PERRLA, EOMI ENT: Airway patent Chest: Nonlabored breathing Skin: No visual rash, normal skin tone Neuro: Alert and oriented 3 Musculoskeletal: No gross abnormalities (Maggie Coleman) Course <Luis Escamilla - Last Filed: 10/12/23 06:03> Vital Signs 10/02/23 10/02/23 16:01 19:26 Temperature 98.9 F 97.8 F Pulse Rate 80 78 Respiratory 20 18 Rate Blood Pressure 195/110 141/88 O2 Sat by Pulse 98 98 Oximetry - Reevaluation(s) Reevaluation #1: Medical records reviewed (Luis Escamilla) Reevaluation #2: Patient symptoms and pain control (Luis Escamilla) Reevaluation #3: Patient informed results and questions answered (Luis Escamilla) Reevaluation #4: Was pt. sent in by a medical professional or institution (, PA, PACKAGE DYE STAND LOADER, urgent care, hospital, or usp...) When possible be specific @ -no Did you speak to anyone other than the patient for history (EMS, parent, family, police, friend...)? What history was obtained from this source @ -no Did you review nursing and triage notes (agree or disagree)? Why? @ -agree Are old charts reviewed (outside hosp., previous admission, EMS record, old EKG, old radiological studies, urgent care reports/EKG's, usp records)? Report findings @ -yes Differential Diagnosis (chest pain, altered mental status, abdominal pain women, abdominal pain men, vaginal bleeding, weakness, fever, dyspnea, syncope, headache, dizziness, GI bleed, back pain, seizure, CVA, palpatations, mental health, musculoskeletal)? @ -prior EKG interpreted by me (3pts min.). @ -no X-rays interpreted by me (1pt min.). @ -no CT interpreted by me (1pt min.). @ -no U/S interpreted by me (1pt. min.). @ -no What testing was considered but not performed or refused? (CT, X-rays, U/S, labs)? Why? @ -none What meds were considered but not given or refused? Why? @ -none Did you discuss the management of the patient with other professionals (professionals i.e. , PA, PACKAGE DYE STAND LOADER, lab, RT, psych nurse, dialysis social worker, director of corporate sales, teacher, light armored vehicle officer, assistant case manager)? Give summary @ -no Was smoking cessation discussed for >3mins.? @ -no Was critical care preformed (if so, how long)? @ -no Were there social determinants of health that impacted care today? How? (Homelessness, low income, unemployed, alcoholism, drug addiction, transporta tion, low edu. Level, literacy, decrease access to med. care, [facility], rehab)? @ -none Was there de-escalation of care discussed even if they declined (Discuss DNR or withdrawal of care, Hospice)? DNR status @ -no What co-morbidities impacted this encounter? (DM, HTN, Smoking, COPD, CAD, Cancer, CVA, ARF, Chemo, Hep., AIDS, mental health diagnosis, sleep apnea, morbid obesity)? @ -none Was patient admitted / discharged? Hospital course, mention meds given and route, prescriptions, significant lab abnormalities, going to OR and other pertinent info. @ - 38 female to the emergency department with dental abscess. Patient replacement antibiotics and pain control can be discharged home Discharge Undiagnosed new problem with uncertain prognosis? @ -no Drug Therapy requiring intensive monitoring for toxicity (Heparin, Nitro, Insulin, Cardizem)? @ -no Were any procedures done? @ -no Diagnosis/symptom? @ -Dental abscess with dental caries Acute, or Chronic, or Acute on Chronic? @ -Acute Uncomplicated (without systemic symptoms) or Complicated (systemic symptoms)? @ -Complicated Side effects of treatment? @ -no Exacerbation, Progression, or Severe Exacerbation? @ -exacerbation Poses a threat to life or bodily function? How? (Chest pain, [place], [place], pneumonia, PE, COPD, DKA, ARF, appy, cholecystitis, CVA, Diverticulitis, Homicidal, Suicidal, threat to staff... and all critical care pts) @ -no (Luis Escamilla) Medical Decision Making <Maggie Coleman - Last Filed: 10/02/23 16:47> <Luis Escamilla - Last Filed: 10/12/23 06:03> - Medical Decision Making quick note preformed by Maggie Coleman PA-C (Maggie Coleman) 38 female to the emergency department with dental abscess. Patient replacement antibiotics and pain control can be discharged home (Luis Escamilla) Disposition <Maggie Coleman - Last Filed: 10/02/23 16:47> Is patient prescribed a controlled substance at d/c from ED?: No Time of Disposition: 18:40 <Luis Escamilla - Last Filed: 10/12/23 06:03> Clinical Impression: Dental abscess, Dental caries Disposition: HOME SELF-CARE Condition: Good Instructions (If sedation given, give patient instructions): Dental Abscess (ED), Toothache (ED) Prescriptions: Clindamycin [Cleocin] 450 mg PO Q6H #28 cap Referrals: Seamus Taylor DDS [STAFF PHYSICIAN] - 1-2 days
[2023-10-02] MEDS ORDERED: CLINDAMYCIN 150 MG CAP PO STA (18:39)
[2023-10-02] MEDS ORDERED: ACET/COD 300 MG/30 MG STARTER PACK 6 TAB BTL PO STA (18:40)
[2023-10-02] MEDS ORDERED: Acetaminophen-Codeine 300-30mg TAB PO STA (18:40)
[2023-10-02 19:39] VITALS: BP 141/88; PULSE 78; RESP 18; TEMP 97.8
== END 2023-10-02 19:30 | disposition home or self-care (01) ==
LOC: EC 14:49
DX: K04.7 Periapical abscess without sinus (principal); F41.9 Anxiety disorder, unspecified; F32.A Depression, unspecified; F17.200 Nicotine dependence, unspecified, uncomplicated; F12.90 Cannabis use, unspecified, uncomplicated; F11.90 Opioid use, unspecified, uncomplicated; Z79.899 Other long term (current) drug therapy; Z88.0 Allergy status to penicillin; Z88.2 Allergy status to sulfonamides; Z88.1 Allergy status to other antibiotic agents
CPT/HCPCS: 99283